=== PATIENT | male | born 1940 | race African-American/Black ===

== ENCOUNTER 2020-08-03 00:16 | Inpatient (IN) | payer MEDICARE, MEDICAID, OTHER ==
[2020-08-03] MEDS ORDERED: Fentanyl 100 MCG/2 ML VIAL ONE (00:46)
[2020-08-03] MEDS ORDERED: Ondansetron PF 4 MG/2 ML Vial ONE (00:46)
[2020-08-03 01:30] LABS: #Lymphocytes 0.9 thou/uL (1.20-3.40); #Monocytes 0.5 thou/uL (0.11-0.59); %Basophils 0.2 % (0.0-1.0); %Eosinophils 0.6 % (0.0-10.0); %Lymphocytes 12.4 % (21.0-51.0); %Monocytes 6.4 % (0.0-10.0); %Neutrophils 80.4 % (42.0-75.0); Hemoglobin 13.4 g/dL (14.0-18.0); Mean Corpuscular HGB CONC 33.1 g/dL (32.0-36.0); Mean Corpuscular Hemoglobin 30.8 pg (27.0-31.0); Mean Corpuscular Volume 93.2 fL (78.0-98.0); Mean Platelet Volume 7.1 fL (7.4-10.4); Platelet Count 361 thou/uL (130-400); RBC Distribution Width 12.7 % (11.5-14.5); Red Blood Cell (RBC) Count 4.33 mill/uL (4.70-6.10); White Blood Cell (WBC) Count 7.4 thou/uL (4.8-10.8)
[2020-08-03 01:46] LABS: ALT (SGPT) 10 U/L (8-55); AST (SGOT) 14 U/L (5-34); Albumin 3.8 g/dL (3.4-4.8); Alkaline Phosphatase 81 U/L (40-110); Anion Gap 14 mmol/L (10-20); BUN (Urea Nitrogen) 8 mg/dL (8.4-25.7); Bilirubin, Total 0.2 mg/dL (0.2-1.2); Calc. Creatinine Clearance 0 mL/min (70-130); Carbon Dioxide 26 mmol/L (23-31); Chloride 94 mmol/L (98-107); Estimated GFR-MDRD Greater than 90; Globulin 2.9 g/dL (2.4-3.5); Glucose 131 mg/dL (83-110); Lipase 14 U/L (8-78); Potassium 3.8 mmol/L (3.5-5.1); Protein, Total 6.7 g/dL (5.8-8.1); Sodium 130 mmol/L (136-145)
[2020-08-03] MEDS ORDERED: Piperacillin/Tazobactam 4.5 GM VIAL ONE (02:49)
[2020-08-03] MEDS ORDERED: Ondansetron PF 4 MG/2 ML Vial IVP PRN (03:02)
[2020-08-03] MEDS ORDERED: Morphine 2 MG/ML VIAL SLOW IVP PRN (03:08)
--- NOTE | 2020-08-03 03:08 | PDOC.HHP ---
Hospitalist HPI - History of Present Illness Abdominal pain and distention History of Present Illness: 79-year-old gentleman with a history of hypertension, prostate cancer, history of multiple bowel surgeries presented to the emergency department with a complaint of nausea and vomiting, abdominal pain and bloating. He was recently admitted to [facility] for small bowel obstruction which was treated nonoperatively. Patient was discharged 3 days ago. He denied any vomiting. He stated her last bowel movement was this morning and was passing gas till yesterday in the evening. Images done in the emergency department demonstrate high-grade small bowel obstruction and presence of small ascites. General surgeon Dr. Laws was contacted who recommended patient to be admitted to the hospitalist service for her to consult. He denied any pain during my examination. Hospitalist ROS - Review of Systems Other: Except as documented, all other systems reviewed and negative. - Medication Medications: Patient not able to keep names of medication he takes at home. Hospitalist History - Past Medical History Other Medical History: Hypertension, prostate cancer, history of small bowel obstruction. - Past Surgical History Other Surgical History: Multiple bowel surgeries. - Family History Family History: reports: cancer (Father) - Social History Smoking Status: Current every day smoker Alcohol: reports: None Drugs: reports: none Living Situation: With Family - Exam General Appearance: NAD, awake alert Eye: PERRL, anicteric sclera ENT: normocephalic atraumatic, no oropharyngeal lesions, moist mucosa Neck: supple, symmetric, no JVD, no thyromegaly Heart: RRR, no murmur, no rubs Respiratory: CTAB, no wheezes, no rales, no ronchi Gastrointestinal: soft, non-tender, distended Gastrointestinal - other findings: Tense. Hyperactive bowel sounds Extremities: no cyanosis, no edema Skin: normal turgor, no rashes Neurological: cranial nerve grossly intact, no weakness, no focal deficits Musculoskeletal: normal tone, normal strength Psychiatric: normal affect, normal behavior, A&O x 3 Hospitalist Results - Labs Result Diagrams: 08/03/20 05:27 08/03/20 05:38 Lab results: WBC 7.4 thou/uL (4.8-10.8) 08/03/20 01:15 Hgb 13.4 g/dL (14.0-18.0) L 08/03/20 01:15 Hct 40.4 % (42.0-52.0) L 08/03/20 01:15 MCV 93.2 fL (78.0-98.0) 08/03/20 01:15 Plt Count 361 thou/uL (130-400) 08/03/20 01:15 Neutrophils % 80.4 % (42.0-75.0) H 08/03/20 01:15 Sodium 130 mmol/L (136-145) L 08/03/20 01:15 Potassium 3.8 mmol/L (3.5-5.1) 08/03/20 01:15 Chloride 94 mmol/L (98-107) L 08/03/20 01:15 Carbon Dioxide 26 mmol/L (23-31) 08/03/20 01:15 BUN 8 mg/dL (8.4-25.7) L 08/03/20 01:15 Creatinine 0.89 mg/dL (0.7-1.3) 08/03/20 01:15 Glucose 131 mg/dL (83-110) H 08/03/20 01:15 Lactic Acid 1.2 mmol/L (0.5-2.2) 08/03/20 01:15 Calcium 9.0 mg/dL (7.8-10.44) 08/03/20 01:15 Total Bilirubin 0.2 mg/dL (0.2-1.2) 08/03/20 01:15 AST 14 U/L (5-34) 08/03/20 01:15 ALT 10 U/L (8-55) 08/03/20 01:15 Alkaline Phosphatase 81 U/L (40-110) 08/03/20 01:15 Troponin I 0.019 ng/mL (< 0.028) 08/03/20 01:15 Serum Total Protein 6.7 g/dL (5.8-8.1) 08/03/20 01:15 Albumin 3.8 g/dL (3.4-4.8) 08/03/20 01:15 Lipase 14 U/L (8-78) 08/03/20 01:15 Hospitalist H&P A/P - Problem (1) Small bowel obstruction Code(s): K56.609 - UNSP INTESTNL OBST, UNSP TO PARTIAL VERSUS COMPLETE OBST Status: Acute Assessment and Plan: High-grade. (2) Ascites Code(s): R18.8 - OTHER ASCITES Status: Acute Assessment and Plan: Small amount of ascites. May be reactive to the bowel obstruction. (3) History of prostate cancer Code(s): Z85.46 - PERSONAL HISTORY OF MALIGNANT NEOPLASM OF PROSTATE Status: Acute (4) Hyponatremia Code(s): E87.1 - HYPO-OSMOLALITY AND HYPONATREMIA Status: Acute (5) Hypertension Code(s): I10 - ESSENTIAL (PRIMARY) HYPERTENSION Status: Acute - Plan Plan: Admit to the medical floor. Supportive measures with IV hydration, IV opioid for pain. Consult to general surgery requested. Ascites is likely reactive. Empiric IV antibiotics. IV normal saline to treat hyponatremia. Blood pressure is well controlled. Monitor BMP and CBC. NG tube per general surgery.
--- NOTE | 2020-08-03 03:14 | PDOC.FMACP ---
Advance Care Planning - Problem (1) Small bowel obstruction Status: Acute Code(s): K56.609 - UNSP INTESTNL OBST, UNSP TO PARTIAL VERSUS COMPLETE OBST (2) Ascites Status: Acute Code(s): R18.8 - OTHER ASCITES (3) History of prostate cancer Status: Acute Code(s): Z85.46 - PERSONAL HISTORY OF MALIGNANT NEOPLASM OF PROSTATE (4) Hyponatremia Status: Acute Code(s): E87.1 - HYPO-OSMOLALITY AND HYPONATREMIA (5) Hypertension Status: Acute Code(s): I10 - ESSENTIAL (PRIMARY) HYPERTENSION - Note Summary: Advanced Care Planning was discussed. The diagnosis, prognosis and goals of care were discussed. Appropriate forms and documentation to accomplish the goals of care were discussed. All questions were answered. Patient wishes to be full code. I discussed advance care planning and need to document advanced directive. His Wanda Mayer is the surrogate medical decision maker. Time Spent (mins): 16
[2020-08-03 06:22] LABS: Hemoglobin 15.1 g/dL (14.0-18.0); Mean Corpuscular HGB CONC 32.1 g/dL (32.0-36.0); Mean Corpuscular Hemoglobin 30.1 pg (27.0-31.0); Mean Corpuscular Volume 93.7 fL (78.0-98.0); Mean Platelet Volume 8.2 fL (7.4-10.4); Platelet Count 303 thou/uL (130-400); RBC Distribution Width 12.9 % (11.5-14.5); Red Blood Cell (RBC) Count 5.03 mill/uL (4.70-6.10); White Blood Cell (WBC) Count 11.8 thou/uL (4.8-10.8)
[2020-08-03 06:25] LABS: ALT (SGPT) 9 U/L (8-55); AST (SGOT) 19 U/L (5-34); Albumin 3.9 g/dL (3.4-4.8); Alkaline Phosphatase 87 U/L (40-110); Anion Gap 17 mmol/L (10-20); BUN (Urea Nitrogen) 9 mg/dL (8.4-25.7); Bilirubin, Total 0.3 mg/dL (0.2-1.2); Calc. Creatinine Clearance 0 mL/min (70-130); Calcium 8.9 mg/dL (7.8-10.44); Carbon Dioxide 22 mmol/L (23-31); Chloride 96 mmol/L (98-107); Estimated GFR-MDRD Greater than 90; Glucose 124 mg/dL (83-110); Potassium 4.1 mmol/L (3.5-5.1); Protein, Total 6.9 g/dL (5.8-8.1); Sodium 131 mmol/L (136-145)
[2020-08-03 06:26] LABS: #Lymphocytes 1.1 thou/uL (1.20-3.40); #Neutrophils 9.6 thou/uL (1.40-6.50); %Basophils 0.3 % (0.0-1.0); %Eosinophils 0.3 % (0.0-10.0); %Lymphocytes 9.5 % (21.0-51.0); %Monocytes 8.4 % (0.0-10.0); %Neutrophils 81.6 % (42.0-75.0)
[2020-08-03] MEDS ORDERED: HYDROcodone/Acetaminophen 5/325 mg Tablet PO PRN ×2 (06:27→06:28)
--- NOTE | 2020-08-03 07:51 | RAD ---
Radiograph abdomen one view: 08/03/2020 4:06 AM HISTORY: 79-year-old male with small bowel obstruction, status post NG tube adjustment COMPARISON: None FINDINGS: Esophageal tube side port at EG junction, distal tip vertically oriented overlapping left side of L2 vertebral body. Dilated air-filled small bowel loops with air-fluid levels. Excreted contrast material in nondilated bilateral renal collecting systems. Mid and lower abdomen, and right side of abdomen, excluded from [id number]. IMPRESSION: Esophagogastric tube distal tip overlying expected location of proximal stomach
--- NOTE | 2020-08-03 07:54 | RAD ---
Portable frontal chest radiograph: 08/03/2020 COMPARISON: 06/22/2012 HISTORY: Pain and distention FINDINGS: There is hazy increased density in the medial left lung base suggesting partial consolidati on/collapse of the left lower lobe with associated left pleural effusion. There is a nasogastric tube present, distal tip at the level of the gastroesophageal junction, side port in the mid/distal e sophagus. Recommend advancing the nasogastric tube. Dilated loops of gas-filled small bowel noted within the left upper quadrant concerning for small bowel obstruction. Hazy increased linear interstitial density noted with pulmonary hyperinflation. No pneumothorax noted . IMPRESSION: Pleural and right lung opacity in the left lung base. Nasogastric tube in place, which do es not extend into the abdomen and should thus be advanced and repeat imaged.
--- NOTE | 2020-08-03 07:58 | CT ---
PRELIMINARY REPORT/[facility]/EMERGENCY AFTER HOURS PROCEDURE: Receipt of this report by the clinical staff was confirmed with Rikki Felipe DO by Nabeel Celis on Aug 03, 2020 02:21:00 CDT.Addendum electronically signed by Nabeel Celis on August 03, 2020 2:21:31 AM CDT EXAM: CT Abdomen and Pelvis with Intravenous Contrast CLINICAL HISTORY: 79-year-old male with a past medical history of hypertension and SBO with multiple abdominal surgeries presents to the ER because of nausea and vomiting that started today TECHNIQUE: Axial computed tomography images of the abdomen and pelvis with intravenous contrast. CONTRAST: With; ISOVUE 370,100mL COMPARISON: None provided. FINDINGS: Lower thorax: Heart is normal in size. There is moderate centrilobular emphysema. There is a moderate size left pleural effusion and a small right pleural effusion. No acute airspace opacities. LIVER: Unremarkable. GALLBLADDER AND BILE DUCTS: Unremarkable. No calcified stone. No ductal dilation. PANCREAS: Unremarkable. SPLEEN: Unremarkable. ADRENAL GLANDS: Unremarkable. KIDNEYS, URETERS, AND BLADDER: Unremarkable. No hydronephrosis or nephrolithiasis. No ureteral or reagan dder calculi. STOMACH AND BOWEL: Esophagus is patulous and fluid-filled. There is a small hiatal hernia that is al so fluid-filled. There is diffuse dilation of small bowel with nondistended large bowel. Transition point appears to be in the right lower quadrant. There is evidence of ascites. No free air. Moderate amount of fecal material in the proximal large bowel. No evidence for large bowel distention or wall thickening. APPENDIX: Not visualized PERITONEUM: No free fluid. No free air. LYMPH NODES: No lymphadenopathy. REPRODUCTIVE: Unremarkable as visualized. VASCULATURE: No aortic aneurysm. BONES: No fracture or suspicious osseous abnormality. ABDOMINAL WALL AND SOFT TISSUES: There is subcutaneous soft tissue infiltration consistent with edema . IMPRESSION: Findings suspicious for high-grade distal small bowel obstruction with transition point i n right lower quadrant. No evidence for free air. Ascites, moderate sized left pleural effusion and subcutaneous infiltration suggesting anasarca. ELECTRONICALLY SIGNED BY: Missy Haywood MD Aug 03, 2020 2:17:06 AM CDT FINAL REPORT EXAM: CT ABDOMEN AND PELVIS HISTORY: Evaluate for small bowel obstruction. COMPARISON: None. Procedure: Multiple contiguous axial images were obtained and a CT of the abdomen and pelvis with IV contrast. C oronal reformats were performed. FINDINGS: Lower Chest: Moderate left-sided pleural effusion. Emphysematous changes of the lung parenchyma. Atel ectatic changes lung bases. Vessels: Normal caliber aorta with atherosclerosis. Heart: Normal heart size. No significant pericardial fluid. Abdomen: Portal vein:Patent. Gallbladder: Contracted. Liver: within normal limits. Pancreas: within normal limits. Spleen: within normal limits. Adrenals: within normal limits. Kidneys: Symmetric enhancement. No obstructive uropathy. Two separate right renal cysts. Peritoneum: There is a moderate amount of free fluid in the abdomen. Bowel: Markedly limited air-filled distended loops of small bowel. Colon is decompressed, as is the d istal ileum. The exact transition segment is difficult to appreciate, but is presumed to be in the right lower quadrant. Mesentery and Retroperitoneum: No enlarged mesenteric or retroperitoneal lymph nodes. Abdominal Wall: within normal limits. Pelvis: Reproductive Organs: Reproductive organs are unremarkable. Pelvis: There is free fluid in the pelvis. Bladder: Decompressed and cannot be assessed. Bones: Degenerative changes. No lytic or blastic lesions. IMPRESSION: 1. This report is in agreement with initial report by [facility]. 2. Moderate left-sided effusion. 3. Free fluid in the abdomen or pelvis. 4. Suspicion for high-grade small bowel obstruction. Exact transition point is difficult to determine but may be in the right lower quadrant. Transcribed Date/Time: 08/03/2020 8:12 AM
[2020-08-03] MEDS: Famotidine/PF 20 mg/2ml Vial SLOW IVP SCH ×2 (08:36→21:05)
[2020-08-03] MEDS: Sodium Chloride 0.9% 1,000 ML IV SCH ×2 (08:36→17:06)
[2020-08-03] MEDS: Piperacillin/Tazobactam 3.375 GM in Sodium Chloride 0.9% 100 ML IVPB SCH ×3 (08:37→21:05)
[2020-08-03] MEDS ORDERED: FLU VACC QS2020-21(65YR UP)/PF 240 MCG/0.7 ML SYRINGE IM ONE (12:15)
[2020-08-03 12:55] LABS: SARS-CoV-2 MS2 Positive; SARS-CoV-2 N Gene Negative; SARS-CoV-2 S Gene Negative; SARS-CoV-2 by NAA Not Detected (NotDetected); SARS-CoV-2 orf1ab Negative
--- NOTE | 2020-08-03 14:22 | CON ---
DATE OF CONSULTATION: REASON FOR CONSULTATION: Abdominal pain. HISTORY OF PRESENT ILLNESS: Mr. Mayer is a 79-year-old man recently discharged from [facility] in [place] for small bowel obstruction, he states this was managed conservatively, and he had been home for 3 days, eating normally and having bowel movements. However, last night, he developed recurrent pain and nausea, so he came to the emergency room, was found to have evidence of small bowel obstruction on CT. The transition point could not be definitely seen, but the small bowel was fairly dilated. He states that he was passing gas last night. He has not noticed any at this morning. He is not having any pain or nausea currently. He has an NG tube in place with bilious drainage. He denies any weight loss. He does have a history of multiple bowel obstructions in the past. He had prostate surgery in 2008 and has had two surgeries since then for small bowel obstruction. He is quite thin, but states that this is his normal weight. He was also noted on his CT scan of the abdomen and pelvis to have a left pleural effusion and some ascites. The hospitalist feels that the ascites is likely reactive to the small bowel obstruction, but it is unclear how long the pleural effusion has been present or what the etiology of this is. He does have a 65 pack-year history of smoking, but denies any shortness of breath. He also denies any history of heart disease or heart failure. PAST MEDICAL HISTORY: Hypertension, prostate cancer, bowel obstructions, and tobacco abuse. PAST SURGICAL HISTORY: Prostatectomy in 2008 followed by "some radiation" and two subsequent surgeries for bowel obstruction. He is unsure of the date. SOCIAL HISTORY: The patient smokes a pack a day since he was 18 years old. Does not drink heavily or use any drugs. ALLERGIES: HE HAS NO KNOWN DRUG ALLERGIES. MEDICATIONS: He does not know all the names of his medications, but according to the ER note, takes; 1. Amlodipine. 2. Albuterol inhaler. 3. Iron. 4. . REVIEW OF SYSTEMS: Ten-system review of systems negative except per HPI. PHYSICAL EXAMINATION: VITAL SIGNS: The patient is afebrile, heart rate 94, respirations 18, 100% on 1 L nasal cannula, and blood pressure 121/72. GENERAL: Reveals a thin elderly man with a BMI of 16. He is in no acute distress. He has an NG tube in place with bilious drainage. HEENT: Unremarkable. NECK: Supple without lymphadenopathy or thyroid nodules. HEART: Regular in its rate and rhythm without murmurs, rubs, or gallops. LUNGS: Clear to auscultation bilaterally. ABDOMEN: Distended and somewhat firm, but nontender. Bowel sounds are diminished. Has a healed midline and paramedian incision. No palpable masses or hernias. EXTREMITIES: Cool without ulceration. He does not have any palpable pedal pulses or popliteal pulses, but does have femoral pulses bilaterally. NEUROLOGIC: No focal deficits. PSYCHIATRIC: Alert, oriented, appropriate, although a vague historian. PSYCHIATRIC: Normal affect and linear thought processes. LABORATORY DATA: White count was slightly elevated at 11, platelets 303, and hematocrit 47. Sodium slightly low 131, bicarb 22, glucose 124. Other electrolytes and LFTs are normal, and his albumin is 3.9, troponin was 0.019. Imaging was reviewed and I agree with the written report that he has a dilated small bowel loops. I am unable to identify a transition point as well, and I am having difficulty seeing in the terminal ileum due to the patient's very thin body habitus. ASSESSMENT: Likely recurrent small-bowel obstruction, although transition point cannot definitely be identified and it is difficult to identify the terminal ileum due to his thin body habitus. He has an NG tube in place and is comfortable and I favor a course of conservative management. The recurrence of bowel obstruction so soon after his discharge with the previous episode is not a good prognostic factor for this being able to be managed conservatively. However, the patient does have a left pleural effusion of uncertain etiology. I am concerned that he could have underlying heart disease given his peripheral vascular disease on examination and his long smoking history, but I will leave it at the hospitalist discretion whether additional cardiac workup is necessary preoperatively. I think that he has a relatively high risk of proceeding to surgery, which would likely need to be open given his multiple laparotomies for bowel obstruction in the past. The patient is currently comfortable and there is no urgent indication for surgery today. I will continue to follow him with the Hospitalist Service. Given his baseline underweight status and recent bowel obstruction, n.p.o. status, I have ordered TPN to start today, and I have asked the dietitian to evaluate him. Job ID: [id number]
[2020-08-03] MEDS ORDERED: Iopamidol-370 76% 500 ML 1 ML ONE (14:36)
[2020-08-03] MEDS ORDERED: AA 4.25 %/CALCIUM/LYTES/D5W 2,000 ML IV SCH (15:00)
[2020-08-03] MEDS: D5W-AA 4.25% with LYTES 1,000 ML IV SCH (17:05)
[2020-08-04] MEDS: Piperacillin/Tazobactam 3.375 GM in Sodium Chloride 0.9% 100 ML IVPB SCH ×4 (03:31→21:13)
[2020-08-04] MEDS: Sodium Chloride 0.9% 1,000 ML IV SCH ×2 (06:37→21:13)
[2020-08-04] MEDS: Famotidine/PF 20 mg/2ml Vial SLOW IVP SCH ×2 (08:45→21:13)
[2020-08-04] MEDS: D5W-AA 4.25% with LYTES 1,000 ML IV SCH ×2 (09:17→21:17)
--- NOTE | 2020-08-04 09:56 | PDOC.GSPN ---
Surgery Progress Note: Subj - Subjective Narrative: Patient states that he is feeling good. He denies any abdominal pain or nausea. He has not noticed that he has passed any gas however. He has only been ambulating in the room to the bathroom. Vital signs are normal. No fever. Abdomen is soft and nontender to palpation although somewhat distended given his overall body habitus. Bowel sounds are still diminished. Assessment/plan: Small bowel obstruction, symptomatically improved but still with diminished bowel sounds and no reported passage of flatus. NG output is slightly bilious but clearer and [employer] lab[employer] in color than yesterday. I am going to give him another 24 hours of bowel rest. I have ordered a small bowel follow- through for tomorrow morning. If he has not opened up by then he will likely require laparotomy. Surgery Progress Note: Obj - Vital signs Vital signs: Vital Signs - Most Recent Temp Pulse Resp BP Pulse Ox 98.3 F 86 14 123/73 97 08/04/20 07:05 08/04/20 07:05 08/04/20 07:05 08/04/20 07:05 08/04/20 07:05 Surgery Progress Note: Results - Labs Result Diagrams: 08/03/20 05:27 08/03/20 05:38
[2020-08-04 11:02] LABS: #Eosinphils 0.1 thou/uL (0.0-0.7); #Lymphocytes 1.1 thou/uL (1.20-3.40); #Monocytes 0.7 thou/uL (0.11-0.59); #Neutrophils 5.5 thou/uL (1.40-6.50); %Basophils 0.3 % (0.0-1.0); %Eosinophils 1.7 % (0.0-10.0); %Lymphocytes 14.8 % (21.0-51.0); %Monocytes 9.8 % (0.0-10.0); %Neutrophils 73.4 % (42.0-75.0); Hemoglobin 13.3 g/dL (14.0-18.0); Mean Corpuscular HGB CONC 31.4 g/dL (32.0-36.0); Mean Corpuscular Hemoglobin 29.4 pg (27.0-31.0); Mean Corpuscular Volume 93.5 fL (78.0-98.0); Platelet Count 380 thou/uL (130-400); RBC Distribution Width 12.9 % (11.5-14.5); Red Blood Cell (RBC) Count 4.55 mill/uL (4.70-6.10); White Blood Cell (WBC) Count 7.4 thou/uL (4.8-10.8)
[2020-08-04 11:04] VITALS: BMI 17.0
[2020-08-04 12:08] LABS: Albumin 2.9 g/dL (3.4-4.8)
[2020-08-04 12:09] LABS: Chloride 99 mmol/L (98-107); Potassium 4.9 mmol/L (3.5-5.1); Sodium 130 mmol/L (136-145)
[2020-08-04 12:10] LABS: Calcium 8.3 mg/dL (7.8-10.44); Glucose 105 mg/dL (83-110)
[2020-08-04 12:11] LABS: Globulin 3.2 g/dL (2.4-3.5); Protein, Total 6.1 g/dL (5.8-8.1)
[2020-08-04 12:12] LABS: Bilirubin, Total 0.4 mg/dL (0.2-1.2); Carbon Dioxide 19 mmol/L (23-31)
[2020-08-04 12:13] LABS: Alkaline Phosphatase 75 U/L (40-110)
[2020-08-04 12:14] LABS: Calc. Creatinine Clearance 63 mL/min (70-130); Estimated GFR-MDRD Greater than 90
[2020-08-04 12:15] LABS: BUN (Urea Nitrogen) 13 mg/dL (8.4-25.7)
[2020-08-04 12:16] LABS: ALT (SGPT) 11 U/L (8-55); AST (SGOT) 17 U/L (5-34)
[2020-08-04 12:22] LABS: Anion Gap 17 mmol/L (10-20)
--- NOTE | 2020-08-04 17:57 | PDOC.HOSPP ---
- Subjective Encounter Date: 08/04/20 Encounter Time: 10:00 Subjective: Patient seen in follow-up for bowel obstruction. Denies abdominal pain. Denies flatus. - Objective Vital Signs & Weight: Vital Signs (12 hours) Temp Pulse Resp BP Pulse Ox 08/04/20 15:52 97.8 F 87 16 159/83 H 100 08/04/20 13:00 98.2 F 87 18 136/83 100 08/04/20 08:45 97 08/04/20 07:05 98.3 F 86 14 123/73 97 Weight Admit Weight 122 lb Weight 125 lb 14.4 oz I&O: 08/03/20 08/04/20 08/05/20 06:59 06:59 06:59 Intake Total 2196 Output Total 850 Balance 1346 Result Diagrams: 08/04/20 10:41 08/04/20 10:41 Additional Labs: I reviewed patient's labs and MAR Hospitalist ROS - Review of Systems Cardiovascular: denies: chest pain, palpitations, orthopnea, paroxysmal noc. dyspnea, edema, light headedness, other Gastrointestinal: reports: constipation. denies: nausea, vomiting, abdominal pain, diarrhea, melena, hematochezia - Medication Medications: Active Medications Generic Name Dose Route Start Last Admin Trade Name Freq PRN Reason Stop Dose Admin Famotidine 20 mg 08/03/20 09:00 08/04/20 08:45 Famotidine/Pf 20 Mg/2ml Vial SLOW IVP 20 mg Q12HR MAE Administration Sodium Chloride 1,000 mls @ 75 mls/hr 08/03/20 03:15 08/04/20 06:37 Normal Saline 0.9% IV 1,000 mls .[id number] MAE Administration Piperacillin Sod/Tazobactam 100 mls @ 200 mls/hr 08/03/20 09:00 08/04/20 14:46 Sod 3.375 gm/ Sodium Chloride IVPB 100 mls 0300,0900,1500,2100 MAE Administration Amino Acids/Electrolytes/Dextrose 1,000 mls @ 83.333 mls/hr 08/03/20 15:30 08/04/20 09:17 Clinimix E 4.25/5 IV 1,000 mls INF MAE Administration Sodium Chloride 10 ml 08/03/20 09:00 08/04/20 08:45 Flush - Normal Saline 10 Ml Syringe IVF 10 ml Q12HR MAE Administration - Exam General Appearance: awake alert Eye: anicteric sclera ENT: moist mucosa Neck: supple Heart: RRR Respiratory: CTAB Gastrointestinal: soft, non-tender Extremities: no cyanosis Skin: no rashes Psychiatric: normal affect, normal behavior Hosp A/P - Plan -Assessment (1) Small bowel obstruction Code(s): K56.609 - UNSP INTESTNL OBST, UNSP TO PARTIAL VERSUS COMPLETE OBST Status: Acute (2) Ascites Code(s): R18.8 - OTHER ASCITES Status: Acute (3) History of prostate cancer Code(s): Z85.46 - PERSONAL HISTORY OF MALIGNANT NEOPLASM OF PROSTATE Status: Chronic (4) Hyponatremia Code(s): E87.1 - HYPO-OSMOLALITY AND HYPONATREMIA Status: Chronic (5) Hypertension Code(s): I10 - ESSENTIAL (PRIMARY) HYPERTENSION Status: Chronic - Plan General surgery service following. Hypertension controlled. NG tube to suction. Likely small bowel follow-through tomorrow. Hyponatremia stable.
[2020-08-05] MEDS: Piperacillin/Tazobactam 3.375 GM in Sodium Chloride 0.9% 100 ML IVPB SCH ×4 (05:18→19:41)
[2020-08-05 05:33] LABS: #Eosinphils 0.1 thou/uL (0.0-0.7); #Lymphocytes 1.2 thou/uL (1.20-3.40); #Monocytes 0.7 thou/uL (0.11-0.59); #Neutrophils 5.1 thou/uL (1.40-6.50); %Basophils 0.2 % (0.0-1.0); %Eosinophils 2.1 % (0.0-10.0); %Lymphocytes 16.6 % (21.0-51.0); %Monocytes 9.4 % (0.0-10.0); %Neutrophils 71.6 % (42.0-75.0); Mean Corpuscular HGB CONC 32.8 g/dL (32.0-36.0); Mean Corpuscular Hemoglobin 30.2 pg (27.0-31.0); Mean Corpuscular Volume 91.9 fL (78.0-98.0); Mean Platelet Volume 6.6 fL (7.4-10.4); Platelet Count 342 thou/uL (130-400); RBC Distribution Width 12.8 % (11.5-14.5); Red Blood Cell (RBC) Count 4.32 mill/uL (4.70-6.10); White Blood Cell (WBC) Count 7.1 thou/uL (4.8-10.8)
[2020-08-05 05:57] LABS: ALT (SGPT) 7 U/L (8-55); AST (SGOT) 12 U/L (5-34); Albumin 3.2 g/dL (3.4-4.8); Alkaline Phosphatase 62 U/L (40-110); Anion Gap 11 mmol/L (10-20); BUN (Urea Nitrogen) 16 mg/dL (8.4-25.7); Bilirubin, Total 0.3 mg/dL (0.2-1.2); Calc. Creatinine Clearance 67 mL/min (70-130); Calcium 8.1 mg/dL (7.8-10.44); Carbon Dioxide 28 mmol/L (23-31); Chloride 96 mmol/L (98-107); Estimated GFR-MDRD Greater than 90; Globulin 2.6 g/dL (2.4-3.5); Glucose 105 mg/dL (83-110); Potassium 4.5 mmol/L (3.5-5.1); Protein, Total 5.8 g/dL (5.8-8.1); Sodium 130 mmol/L (136-145)
[2020-08-05] MEDS: Famotidine/PF 20 mg/2ml Vial SLOW IVP SCH ×2 (10:03→21:09)
[2020-08-05] MEDS ORDERED: MD-Gastroview 120 ML BOT ONE (10:08)
[2020-08-05] MEDS: D5W-AA 4.25% with LYTES 1,000 ML IV SCH (10:34)
--- NOTE | 2020-08-05 13:17 | PDOC.HOSPP ---
- Subjective Encounter Date: 08/05/20 Encounter Time: 10:00 Subjective: Patient has been seen for follow-up regarding bowel obstruction. He denies any chest pain, shortness of breath or abdominal pain. Does not think he is passing flatus. - Objective Vital Signs & Weight: Vital Signs (12 hours) Temp Pulse Resp BP Pulse Ox 08/05/20 12:38 96 16 120/78 95 08/05/20 08:01 97.9 F 90 16 161/82 H 94 L 08/05/20 03:20 97.5 F L 92 18 148/88 H 96 Weight Admit Weight 122 lb Weight 125 lb 14.4 oz I&O: 08/04/20 08/05/20 08/06/20 06:59 06:59 06:59 Intake Total 2196 2445.3 Output Total 850 900 Balance 1346 1545.3 Result Diagrams: 08/05/20 05:16 08/05/20 05:16 Additional Labs: I reviewed patient's labs and MAR Hospitalist ROS - Review of Systems Constitutional: denies: fever, chills, sweats, weakness, malaise Gastrointestinal: reports: constipation. denies: nausea, vomiting, abdominal pain, diarrhea, melena, hematochezia - Medication Medications: Active Medications Generic Name Dose Route Start Last Admin Trade Name Maximilianoq PRN Reason Stop Dose Admin Famotidine 20 mg 08/03/20 09:00 08/05/20 10:03 Famotidine/Pf 20 Mg/2ml Vial SLOW IVP 20 mg Q12HR MAE Administration Sodium Chloride 1,000 mls @ 75 mls/hr 08/03/20 03:15 08/04/20 21:13 Normal Saline 0.9% IV Not Given .[id number] MAE Amino Acids/Electrolytes/Dextrose 1,000 mls @ 83.333 mls/hr 08/03/20 15:30 08/05/20 10:34 Clinimix E 4.25/5 IV 1,000 mls INF MAE Administration Piperacillin Sod/Tazobactam 100 mls @ 200 mls/hr 08/05/20 06:00 08/05/20 12:42 Sod 3.375 gm/ Sodium Chloride IVPB 100 mls Q6HR MEA Administration Ondansetron HCl 4 mg 08/03/20 03:02 08/05/20 12:42 Ondansetron Pf 4 Mg/2 Ml Vial IVP 4 mg Q6H PRN Administration Nausea/Vomiting Sodium Chloride 10 ml 08/03/20 09:00 08/05/20 10:07 Flush - Normal Saline 10 Ml Syringe IVF 10 ml Q12HR MAE Administration - Exam General Appearance: awake alert Eye: anicteric sclera ENT: moist mucosa Neck: supple Heart: RRR Respiratory: CTAB Gastrointestinal: soft, non-tender, normal bowel sounds Skin: no rashes Psychiatric: normal affect, normal behavior Hosp A/P - Plan -Assessment (1) Small bowel obstruction Code(s): K56.609 - UNSP INTESTNL OBST, UNSP TO PARTIAL VERSUS COMPLETE OBST Status: Acute (2) Ascites Code(s): R18.8 - OTHER ASCITES Status: Acute (3) History of prostate cancer Code(s): Z85.46 - PERSONAL HISTORY OF MALIGNANT NEOPLASM OF PROSTATE Status: Chronic (4) Hypertension Code(s): I10 - ESSENTIAL (PRIMARY) HYPERTENSION Status: Chronic (5) Hyponatremia Code(s): E87.1 - HYPO-OSMOLALITY AND HYPONATREMIA Status: Chronic - Plan Patient to have small bowel follow-through study today, will await result. Hypertension controlled. Patient is hemodynamically stable. Hyponatremia stable.
--- NOTE | 2020-08-05 14:36 | RAD ---
SMALL BOWEL EXAM: 08/05/20 Gastrografin infused through an NG tube. INDICATIONS: Small bowel obstruction. The verifier film shows dilated loops of small bowel in the mid abdomen. On the immediate and 30 minute film, there are dilated loops of proximal small bowel opacified. At one hour, there are dilated loops of proximal to mid small bowel. No significant progression at 2 hour and 3 hours films. IMPRESSION: Evidence of high grade small bowel obstruction at 3 hours. No progression since the 2 hour exam. POS: AGW
[2020-08-05] MEDS ORDERED: Meropenem 2 GM, Admixture Fee 1 EACH in Sodium Chloride 0.9% 100 ML IVPB SCH (16:45)
--- NOTE | 2020-08-05 16:59 | PRG ---
DATE OF SERVICE: 08/05/2020 SUBJECTIVE: Grady Mayer is doing well today, although he has had some nausea and vomiting during a small-bowel follow-through. Small-bowel follow-through reveals complete bowel obstruction. He has had a prior history of prostatectomy and 2 past operations for bowel obstructions. NG tube output has been 400 since yesterday. OBJECTIVE: VITAL SIGNS: Temperature 97.6, pulse 109, blood pressure 164/93. LUNGS: Clear to auscultation. CARDIAC: Regular rhythm. ABDOMEN: Firm. Hyperactive bowel sounds. EXTREMITIES: Unremarkable. LABORATORY DATA: Basic metabolic profile normal. White count 7, hemoglobin 13. ASSESSMENT AND PLAN: Small bowel obstruction. Return NG tube to suction. Plan laparotomy, adhesiolysis tomorrow. Discussed with patient risks and benefits explained. Questions answered. Job ID: [id number]
--- NOTE | 2020-08-05 18:23 | OP ---
DATE OF PROCEDURE: 08/05/2020 PREOPERATIVE DIAGNOSES: 1. Poor IV access. 2. Small-bowel obstruction. POSTOPERATIVE DIAGNOSES: 1. Poor IV access. 2. Small-bowel obstruction. PROCEDURE PERFORMED: Right subclavian vein triple-lumen catheter, central line. ANESTHESIA: 1% Xylocaine. DESCRIPTION OF PROCEDURE: With the patient at bedside, right paraclavicular area was prepared with ChloraPrep and draped in routine fashion. 1% Xylocaine was infiltrated in the skin and subcutaneous tissue. Trocar catheter introduced infraclavicularly into the right subclavian vein, obtaining good return of venous blood. J-wire threaded. Trocar catheter removed. Seldinger technique used to place a triple-lumen catheter, secured with 3-0 silk suture. J-wire removed. Each port aspirated blood, flushed with saline solution. Chest x-ray called . Job ID: [id number]
--- NOTE | 2020-08-05 18:24 | RAD ---
Portable frontal chest radiograph: 08/05/2020 COMPARISON: 08/03/2020 HISTORY: Confirm central line placement FINDINGS: There is a right-sided vascular catheter with the distal tip overlying the region of the pr oximal right atrium. No pneumothorax is evident. There is a nasogastric tube in stable position. When compared to the 08/03/2020 examination there is worsening interstitial and alveolar opacity in t he perihilar regions and both lung bases. IMPRESSION: Right-sided vascular catheter in place. Nonspecific worsening bilateral perihilar and bib asilar interstitial and alveolar opacity.
[2020-08-05] MEDS: Sodium Chloride 0.9% 1,000 ML IV SCH (19:41)
[2020-08-06] MEDS: Piperacillin/Tazobactam 3.375 GM in Sodium Chloride 0.9% 100 ML IVPB SCH ×5 (00:02→23:30)
[2020-08-06] MEDS: Sodium Chloride 0.9% 1,000 ML IV SCH ×3 (00:06→18:06)
[2020-08-06] MEDS: D5W-AA 4.25% with LYTES 1,000 ML IV SCH (01:44)
[2020-08-06] MEDS: Famotidine/PF 20 mg/2ml Vial SLOW IVP SCH ×2 (09:06→20:26)
[2020-08-06] MEDS ORDERED: Fentanyl 100 MCG/2 ML VIAL ONE (09:08)
[2020-08-06] MEDS ORDERED: Dexamethasone 4 mg/ml Vial ONE (09:08)
[2020-08-06] MEDS ORDERED: Fentanyl 250 MCG/5 ML VIAL ONE (09:18)
[2020-08-06] MEDS ORDERED: Albumin 5% 500 ML ONE ×2 (09:57→11:38)
[2020-08-06] MEDS ORDERED: Phenylephrine 10 MG/ML VIAL ONE ×2 (10:03→11:38)
[2020-08-06 10:06] LABS: Hemoglobin 11.6 g/dL (14.0-18.0); Mean Corpuscular HGB CONC 32.3 g/dL (32.0-36.0); Mean Corpuscular Hemoglobin 30.3 pg (27.0-31.0); Mean Corpuscular Volume 93.6 fL (78.0-98.0); Mean Platelet Volume 6.9 fL (7.4-10.4); Platelet Count 354 thou/uL (130-400); RBC Distribution Width 12.8 % (11.5-14.5); Red Blood Cell (RBC) Count 3.82 mill/uL (4.70-6.10); White Blood Cell (WBC) Count 13.8 thou/uL (4.8-10.8)
[2020-08-06 10:07] LABS: INR-International Normal Ratio 1.3; PTT 38.1 sec (22.9-36.1); Prothrombin Time 16.2 sec (12.0-14.7)
[2020-08-06 10:32] LABS: ALT (SGPT) 9 U/L (8-55); AST (SGOT) 16 U/L (5-34); Albumin 3.3 g/dL (3.4-4.8); Alkaline Phosphatase 84 U/L (40-110); Anion Gap 14 mmol/L (10-20); BUN (Urea Nitrogen) 24 mg/dL (8.4-25.7); Bilirubin, Total 0.4 mg/dL (0.2-1.2); Calc. Creatinine Clearance 64 mL/min (70-130); Calcium 8.8 mg/dL (7.8-10.44); Carbon Dioxide 29 mmol/L (23-31); Chloride 96 mmol/L (98-107); Estimated GFR-MDRD Greater than 90; Globulin 2.9 g/dL (2.4-3.5); Glucose 118 mg/dL (83-110); Magnesium 2.4 mg/dL (1.6-2.6); Potassium 4.5 mmol/L (3.5-5.1); Protein, Total 6.2 g/dL (5.8-8.1); Sodium 134 mmol/L (136-145)
[2020-08-06 10:33] LABS: Cholesterol 95 mg/dl (< 200 Desired); HDL Cholesterol 48 mg/dL (>60 Neg Risk); LDL Cholesterol, Calculated 37 mg/dL; Phosphorus 4.3 mg/dL (2.3-4.7); Triglycerides 50 mg/dL (Less than 150)
[2020-08-06 10:42] LABS: Band 16 % (5-11); Large Platelets SLIGHT; Lymphocytes 3 % (21-51); MDiff Complete? YES; Monocytes 5 % (0-10); Neutrophil 76 % (42-75); Platelet Morphology Comment Appears Adequate; Vacuoles SLIGHT
[2020-08-06] MEDS ORDERED: Ondansetron HCl/PF 4 MG/2 ML Vial IVP PRN (12:40)
[2020-08-06] MEDS ORDERED: Promethazine HCl 25 MG/ML VIAL IM PRN (12:40)
[2020-08-06] MEDS ORDERED: Promethazine HCl 25 MG/ML VIAL SLOW IVP PRN (12:40)
[2020-08-06] MEDS ORDERED: Sodium Chloride 0.9% 1,000 ML IV SCH (12:45)
[2020-08-06] MEDS ORDERED: Ondansetron PF 4 MG/2 ML Vial ONE (12:51)
[2020-08-06] MEDS ORDERED: PROPOFOL 200 MG/20 ML VIAL ONE (12:51)
[2020-08-06] MEDS ORDERED: Succinylcholine Chloride 20 MG/ML 10 ml SYRINGE FS ONE (12:51)
[2020-08-06] MEDS ORDERED: Rocuronium Bromide 10 MG/ML (10ML VIAL) ONE (12:51)
[2020-08-06] MEDS ORDERED: Glycopyrrolate 0.2 MG/ML 5 ML SYRINGE ONE (12:51)
[2020-08-06] MEDS ORDERED: Lidocaine 1% PF 5 ML VIAL ONE (12:51)
[2020-08-06] MEDS ORDERED: EPHEDRINE 25 MG/5 ML SYRINGE ONE (12:51)
[2020-08-06] MEDS ORDERED: Dexamethasone 20 MG/5 ML VIAL ONE (13:16)
[2020-08-06] MEDS ORDERED: Ropivacaine 0.5% HCl/PF (150 MG/30 ML VIAL) ONE (13:16)
[2020-08-06] MEDS: HUMULIN R IV SCH (14:06)
[2020-08-06] MEDS: [UNRECOGNIZED DRUG - OTHER] IV SCH (14:06)
[2020-08-06] MEDS: FAT EMULSION IV SCH (14:06)
[2020-08-06] MEDS: SODIUM ACETATE IV SCH (14:06)
--- NOTE | 2020-08-06 15:28 | PDOC.HOSPP ---
- Subjective Encounter Date: 08/06/20 Encounter Time: 15:27 Subjective: Patient seen for follow-up regarding bowel obstruction. Had surgery earlier, is very sleepy, could not complete review of systems. - Objective Vital Signs & Weight: Vital Signs (12 hours) Temp Pulse Resp BP Pulse Ox 08/06/20 13:35 96.8 F L 96 20 109/60 100 08/06/20 08:30 97 08/06/20 07:14 97.5 F L 100 16 125/78 97 Weight Admit Weight 122 lb Weight 125 lb 14.4 oz I&O: 08/05/20 08/06/20 08/07/20 06:59 06:59 06:59 Intake Total 2445.3 800 1320 Output Total 900 2700 1075 Balance 1545.3 -1900 245 Result Diagrams: 08/06/20 09:26 08/06/20 09:26 Additional Labs: I reviewed patient's labs and MAR Hospitalist ROS - Review of Systems ROS unobtainable: due to mental status - Medication Medications: Active Medications Generic Name Dose Route Start Last Admin Trade Name Freq PRN Reason Stop Dose Admin Famotidine 20 mg 08/03/20 09:00 08/06/20 09:06 Famotidine/Pf 20 Mg/2ml Vial SLOW IVP Not Given Q12HR MAE Sodium Chloride 1,000 mls @ 75 mls/hr 08/03/20 03:15 08/06/20 14:06 Normal Saline 0.9% IV 1,000 mls .[id number] MAE Administration Piperacillin Sod/Tazobactam 100 mls @ 200 mls/hr 08/05/20 06:00 08/06/20 13:00 Sod 3.375 gm/ Sodium Chloride IVPB Not Given Q6HR MAE Fat Emulsion Intravenous 250 2,296.23 mls @ 95.676 mls/hr 08/06/20 14:00 08/06/20 14:06 ml/ Sodium Acetate 70 meq/ IV 2,296.23 mls Insulin Human Regular 23 units 1400 MAE Administration / Multivitamins 10 ml/ Chromium/Copper/Manganese/ Seleni/Zn 1 ml/ Amino Acids/ Electrolytes Ondansetron HCl 4 mg 08/03/20 03:02 08/05/20 12:42 Ondansetron Pf 4 Mg/2 Ml Vial IVP 4 mg Q6H PRN Administration Nausea/Vomiting Sodium Chloride 10 ml 08/03/20 09:00 08/06/20 09:06 Flush - Normal Saline 10 Ml Syringe IVF Not Given Q12HR MAE - Exam General Appearance: awake alert Eye: scleral icterus ENT: normocephalic atraumatic Neck: supple Heart: RRR Respiratory: CTAB Gastrointestinal: soft Gastrointestinal - other findings: Abdominal dressing Extremities: no cyanosis Skin: no rashes Psychiatric: lethargic Hosp A/P - Plan -Assessment (1) Small bowel obstruction Code(s): K56.609 - UNSP INTESTNL OBST, UNSP TO PARTIAL VERSUS COMPLETE OBST Status: Acute (2) Ascites Code(s): R18.8 - OTHER ASCITES Status: Acute (3) History of prostate cancer Code(s): Z85.46 - PERSONAL HISTORY OF MALIGNANT NEOPLASM OF PROSTATE Status: Chronic (4) Hypertension Code(s): I10 - ESSENTIAL (PRIMARY) HYPERTENSION Status: Chronic (5) Hyponatremia Code(s): E87.1 - HYPO-OSMOLALITY AND HYPONATREMIA Status: Chronic - Plan Small bowel follow-through study indicated obstruction. Patient underwent surgery today. Sodium improved to 134. Monitor vital signs, titrate antihypertensives as needed.
[2020-08-06] MEDS: Ketorolac Tromethamine 30 MG/ML VIAL IVP SCH ×2 (18:03→23:30)
--- NOTE | 2020-08-06 18:36 | OP ---
DATE OF PROCEDURE: 08/06/2020 PREOPERATIVE DIAGNOSES: Bowel obstruction secondary to adhesions, multiple prior operations, multiple operations for small-bowel obstruction, history of prostatectomy, malnutrition, poor IV access, central line placed last night. 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 PROCEDURES PERFORMED: Exploratory laparotomy, extensive adhesiolysis for more than 1 hour, right colectomy, primary anastomosis, ileotransverse colostomy, closure of serosal tear, stapler. ANESTHESIA: General, TAP block. ESTIMATED BLOOD LOSS: Less than 50 mL. BLOOD TRANSFUSION: None. FINDINGS: This patient had extensive adhesions taking more than an hour to takedown. He had obstructive band in the terminal ileum creating a stricture and narrowing with some questionable viability, requiring right colectomy. Single enterotomy with minimal spillage. SINDY incisional suction dressing applied over closed wound with loose kyara. DESCRIPTION OF PROCEDURE: The patient was taken to the operating room, where under general anesthesia and TAP block, abdomen was clipped of hair, prepared with ChloraPrep, and draped in routine fashion. Brewer catheter was then placed. Midline incision was made through the old midline scar, carried down through the skin and subcutaneous tissue, midline fascia, entered the abdominal cavity sharply. There was ascitic fluid from the bowel obstructive process, evacuated with suction. Adhesiolysis was carried out freeing adhesions from the abdominal wall with sharp and blunt dissection and cautery. Adhesiolysis was carried out for more than an hour, freeing adhesions from inter-bowel loops and pelvis. There was a tight stricture band at the root of the mesentery causing obstructive process in the terminal ileum, a few centimeters from the ileocecal valve. Once freed, this created a stricture area of the small bowel with some relative narrowing. It was felt that there was questionable viability and the stricture might create some obstruction. Thus, a right colectomy was undertaken. Right colon was mobilized using cautery and blunt dissection. Duodenum was identified, kept free of harm proximal to the strictured area, divided with a ROSALIE stapler. Mesentery was serially divided with fires of the LigaSure and right colon removed, submitted to Pathology. Ileocolostomy performed with a staple technique, 2 fires of 75 ROSALIE stapler. Good staple closure achieved. Mesenteric defect closed with 3-0 silk. Staple line reinforced with interrupted Lembert suture of 3-0 silk. Good anastomosis palpated. Small bowel ran from the ligament of Treitz to ileocolostomy 4 times, closing serosal defects, there was 1 enterotomy sustained during the adhesiolysis process, closed with ROSALIE stapler. Good viability and closure achieved. Small-bowel contents had been milked retrograde into the stomach, evacuating 3 L of enteric contents out of the stomach. A new NG tube placed, 18-Croatian, palpated in proper position. His sponge and instrument counts were correct. Viscera was placed in the abdominal cavity. Good hemostasis was noted. Abdominal cavity had been thoroughly irrigated with saline solution, irrigant evacuated, and Seprafilm placed between the viscera and the abdominal wall, and fascia was closed with continuous suture of #1 PDS. The thin subcutaneous tissue was freed from the fascia with cautery and kyara applied to the skin after washing the wound with saline solution. SINDY dressing applied. The patient tolerated the procedure well. Job ID: [id number]
[2020-08-06] MEDS: Enoxaparin Sodium 40 MG/0.4 ML SYRINGE SC SCH (20:25)
[2020-08-07] MEDS: Piperacillin/Tazobactam 3.375 GM in Sodium Chloride 0.9% 100 ML IVPB SCH ×4 (05:09→23:36)
[2020-08-07] MEDS: Ketorolac Tromethamine 30 MG/ML VIAL IVP SCH ×4 (05:10→23:36)
[2020-08-07 06:34] LABS: Hemoglobin 9.6 g/dL (14.0-18.0); Mean Corpuscular HGB CONC 32.4 g/dL (32.0-36.0); Mean Corpuscular Hemoglobin 29.9 pg (27.0-31.0); Mean Corpuscular Volume 92.4 fL (78.0-98.0); Mean Platelet Volume 7.5 fL (7.4-10.4); Platelet Count 287 thou/uL (130-400); RBC Distribution Width 12.7 % (11.5-14.5); Red Blood Cell (RBC) Count 3.23 mill/uL (4.70-6.10); White Blood Cell (WBC) Count 7.7 thou/uL (4.8-10.8)
[2020-08-07 06:45] LABS: ALT (SGPT) 7 U/L (8-55); AST (SGOT) 11 U/L (5-34); Albumin 2.7 g/dL (3.4-4.8); Alkaline Phosphatase 40 U/L (40-110); Anion Gap 8 mmol/L (10-20); BUN (Urea Nitrogen) 24 mg/dL (8.4-25.7); Bilirubin, Total 0.4 mg/dL (0.2-1.2); Calc. Creatinine Clearance 71 mL/min (70-130); Calcium 8.1 mg/dL (7.8-10.44); Carbon Dioxide 30 mmol/L (23-31); Chloride 99 mmol/L (98-107); Estimated GFR-MDRD Greater than 90; Globulin 2.5 g/dL (2.4-3.5); Glucose 108 mg/dL (83-110); Potassium 4.3 mmol/L (3.5-5.1); Protein, Total 5.2 g/dL (5.8-8.1); Sodium 133 mmol/L (136-145)
[2020-08-07 07:21] LABS: Band 31 % (5-11); Eosinophils 1 % (0-10); Lymphocytes 5 % (21-51); MDiff Complete? YES; Monocytes 6 % (0-10); Neutrophil 57 % (42-75); Platelet Morphology Comment Appears Adequate; Polychromasia SLIGHT = 2-3 cells (100X) (0-2/hpf); Vacuoles SLIGHT
[2020-08-07] MEDS: Famotidine/PF 20 mg/2ml Vial SLOW IVP SCH ×2 (08:36→20:57)
--- NOTE | 2020-08-07 12:50 | PQF ---
Clinical Documentation Clarification Form Dear Dr. Manuela Baker Date: 08/07/20 8783 Please exercise your independent, professional judgment in responding to the clarification form. Clinical indicators are provided on the bottom of this form for your review. Please check appropriate box(es): [ ] Protein Calorie Malnutrition: [ ] Mild [ ] Moderate [ ] Severe [ ] Other Malnutrition (please specify) [ ] Cachexia [ ] Other diagnosis [ ] Unable to determine In addition, please specify: Present on Admission (POA): [ ] Yes [ ] No [ ] Unable to determine For continuity of documentation, please document condition throughout progress notes and discharge summary. Thank You. To be completed by CDI/Coding staff for physician review: CLINICAL INDICATORS - SIGNS / SYMPTOMS / LABS / RESULTS AND LOCATION IN MR RD Assessment: BMI 17.1 ; -10% weight loss over unknown time with severe muscle wasting observed to the temporal and trapezius muscle and severe fat loss to the intercostal area as well as the orbital fat pad suggestive of severe malnutrition likely in the context of a chronic condition. HPI: pt presented to the ED with a complaint of nausea and vomiting, abdominal pain and bloating. (H&P/[facility]) 08/03 RISK FACTORS / RESULTS AND LOCATION IN MR Advanced age (79), hx of small bowel obstruction, dx ascites , current every day tobacco smoker (H&P/ [employer]) 08/03 TREATMENT / RESULTS AND LOCATION IN MR Dietary consult 08/03 Recommend TPN (RD) Moderate Malnutrition (in acute illness) Energy Intake: <75% of estimated energy requirement for > 7 days Weight Loss: 1-2%/1 week; 5%/ 1 month; 7.5%/3 months Other: mild body fat loss; mild muscle mass loss; mild fluid accumulation; Severe Malnutrition (in acute illness) Energy Intake: _ 50% of estimated energy requirement for _ 5 days Weight Loss: >2%/1 week; >5%/1 month; >7.5%/3 months Other: moderate body fat loss; moderate muscle mass loss; moderate- severe fluid accumulation; 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 CDS Signature: Denise Haynes RN Phone #: [phone] Date: 08/07/20 This is a permanent part of the Medical Record [facility]
--- NOTE | 2020-08-07 13:17 | PDOC.HOSPP ---
- Subjective Encounter Date: 08/07/20 Encounter Time: 08:00 Subjective: Patient seen regarding small bowel obstruction for follow-up. He is more alert today. Continues to be n.p.o. - Objective Vital Signs & Weight: Vital Signs (12 hours) Temp Pulse Resp BP Pulse Ox 08/07/20 11:00 98.1 F 111 H 16 115/56 L 95 08/07/20 09:00 94 L 08/07/20 08:38 94 L 08/07/20 07:14 98.3 F 102 H 14 102/58 L 96 08/07/20 03:03 98.6 F 104 H 16 111/65 98 Weight Admit Weight 122 lb Weight 125 lb 14.4 oz I&O: 08/06/20 08/07/20 08/08/20 06:59 06:59 06:59 Intake Total 800 4677.45 Output Total 2700 2214 Balance -1900 2463.45 Result Diagrams: 08/07/20 06:00 08/07/20 06:00 Additional Labs: Accuchecks 08/07/20 12:07 POC Glucose 109 H I reviewed patient's labs and MAR Hospitalist ROS - Review of Systems Gastrointestinal: reports: constipation. denies: nausea, vomiting, abdominal pain, diarrhea, melena, hematochezia Genitourinary: denies: dysuria, frequency, incontinence, hematuria, retention - Medication Medications: Active Medications Generic Name Dose Route Start Last Admin Trade Name Freq PRN Reason Stop Dose Admin Enoxaparin Sodium 40 mg 08/06/20 21:00 08/06/20 20:25 Enoxaparin Sodium 40 Mg/0.4 Ml Syringe SC 40 mg 2100 MAE Administration Famotidine 20 mg 08/03/20 09:00 08/07/20 08:36 Famotidine/Pf 20 Mg/2ml Vial SLOW IVP 20 mg Q12HR MAE Administration Sodium Chloride 1,000 mls @ 75 mls/hr 08/03/20 03:15 08/06/20 18:06 Normal Saline 0.9% IV 1,000 mls .[id number] MAE Administration Piperacillin Sod/Tazobactam 100 mls @ 200 mls/hr 08/05/20 06:00 08/07/20 12:06 Sod 3.375 gm/ Sodium Chloride IVPB 100 mls Q6HR MAE Administration Fat Emulsion Intravenous 250 2,296.23 mls @ 95.676 mls/hr 08/06/20 14:00 08/06/20 14:06 ml/ Sodium Acetate 70 meq/ IV 2,296.23 mls Insulin Human Regular 23 units 1400 MAE Administration / Multivitamins 10 ml/ Chromium/Copper/Manganese/ Seleni/Zn 1 ml/ Amino Acids/ Electrolytes Ketorolac Tromethamine 15 mg 08/06/20 18:00 08/07/20 12:08 Ketorolac Tromethamine 30 Mg/Ml Vial IVP 08/11/20 18:01 15 mg Q6HR MAE Administration Ondansetron HCl 4 mg 08/03/20 03:02 08/05/20 12:42 Ondansetron Pf 4 Mg/2 Ml Vial IVP 4 mg Q6H PRN Administration Nausea/Vomiting Sodium Chloride 10 ml 08/03/20 09:00 08/07/20 08:41 Flush - Normal Saline 10 Ml Syringe IVF 10 ml Q12HR MAE Administration - Exam General Appearance: awake alert Eye: anicteric sclera ENT: moist mucosa ENT - other findings: NG tube Neck: supple Heart: RRR Respiratory: CTAB Gastrointestinal: soft, non-tender Gastrointestinal - other findings: Abdominal wall dressing Extremities: no edema Skin: no rashes Psychiatric: normal affect Hosp A/P - Plan -Assessment (1) Small bowel obstruction Code(s): K56.609 - UNSP INTESTNL OBST, UNSP TO PARTIAL VERSUS COMPLETE OBST Status: Acute (2) Ascites Code(s): R18.8 - OTHER ASCITES Status: Acute (3) History of prostate cancer Code(s): Z85.46 - PERSONAL HISTORY OF MALIGNANT NEOPLASM OF PROSTATE Status: Chronic (4) Hypertension Code(s): I10 - ESSENTIAL (PRIMARY) HYPERTENSION Status: Chronic (5) Hyponatremia Code(s): E87.1 - HYPO-OSMOLALITY AND HYPONATREMIA Status: Chronic (6) moderate protein calorie malnutrition Status: Chronic, present on admission - Plan Patient had surgery for bowel obstruction yesterday. Patient continues to have NG tube output. Sodium 133 today. Hypertension controlled.
[2020-08-07] MEDS: Sodium Chloride 0.9% 1,000 ML IV SCH ×2 (14:00→18:15)
[2020-08-07] MEDS: FAT EMULSION IV SCH (14:12)
[2020-08-07] MEDS: HUMULIN R IV SCH (14:12)
[2020-08-07] MEDS: SODIUM ACETATE IV SCH (14:12)
[2020-08-07] MEDS: [UNRECOGNIZED DRUG - OTHER] IV SCH (14:12)
--- NOTE | 2020-08-07 17:46 | PRG ---
DATE OF SERVICE: 08/07/2020 SUBJECTIVE: Grady Mayer is doing well today. He feels much better. He is having less abdominal pain. OBJECTIVE: VITAL SIGNS: Temperature 98.2 degrees, pulse 109, blood pressure 130/75. NG tube output in the last 24 hours 775. Urine output 800. LUNGS: Clear to auscultation. CARDIAC: Regular rate and rhythm without murmur or gallop. ABDOMEN: Soft. SINDY incisional suction device in place. EXTREMITIES: Unremarkable. ASSESSMENT AND PLAN: Resolving postoperative ileus. Await GI function. Continue G-tube suction. Continue TPN. Hemoglobin 9.6, hematocrit 29, white count 7. Basic metabolic profile; sodium 133, potassium 4.3. Job ID: [id number]
[2020-08-07] MEDS: Enoxaparin Sodium 40 MG/0.4 ML SYRINGE SC SCH (20:57)
[2020-08-08] MEDS: Piperacillin/Tazobactam 3.375 GM in Sodium Chloride 0.9% 100 ML IVPB SCH ×4 (05:20→23:14)
[2020-08-08] MEDS: Ketorolac Tromethamine 30 MG/ML VIAL IVP SCH ×4 (05:28→23:14)
[2020-08-08] MEDS: Sodium Chloride 0.9% 1,000 ML IV SCH (06:09)
[2020-08-08 06:27] LABS: #Eosinphils 0.2 thou/uL (0.0-0.7); #Lymphocytes 0.6 thou/uL (1.20-3.40); #Monocytes 0.4 thou/uL (0.11-0.59); #Neutrophils 8.5 thou/uL (1.40-6.50); %Basophils 0.3 % (0.0-1.0); %Eosinophils 2.1 % (0.0-10.0); %Lymphocytes 6.1 % (21.0-51.0); %Neutrophils 87.6 % (42.0-75.0); Hemoglobin 9.5 g/dL (14.0-18.0); Mean Corpuscular HGB CONC 31.1 g/dL (32.0-36.0); Mean Corpuscular Hemoglobin 29.2 pg (27.0-31.0); Mean Corpuscular Volume 93.9 fL (78.0-98.0); Mean Platelet Volume 7.3 fL (7.4-10.4); Platelet Count 254 thou/uL (130-400); RBC Distribution Width 12.7 % (11.5-14.5); Red Blood Cell (RBC) Count 3.26 mill/uL (4.70-6.10); White Blood Cell (WBC) Count 9.7 thou/uL (4.8-10.8)
[2020-08-08 06:52] LABS: ALT (SGPT) 10 U/L (8-55); AST (SGOT) 15 U/L (5-34); Albumin 2.7 g/dL (3.4-4.8); Alkaline Phosphatase 64 U/L (40-110); Anion Gap 9 mmol/L (10-20); BUN (Urea Nitrogen) 20 mg/dL (8.4-25.7); Bilirubin, Total 0.4 mg/dL (0.2-1.2); Calc. Creatinine Clearance 82 mL/min (70-130); Calcium 8.4 mg/dL (7.8-10.44); Carbon Dioxide 30 mmol/L (23-31); Chloride 99 mmol/L (98-107); Estimated GFR-MDRD Greater than 90; Globulin 3.1 g/dL (2.4-3.5); Glucose 90 mg/dL (83-110); Potassium 4.3 mmol/L (3.5-5.1); Protein, Total 5.8 g/dL (5.8-8.1); Sodium 134 mmol/L (136-145)
[2020-08-08] MEDS: Famotidine/PF 20 mg/2ml Vial SLOW IVP SCH ×2 (08:35→20:40)
--- NOTE | 2020-08-08 12:15 | PDOC.HOSPP ---
- Subjective Encounter Date: 08/08/20 Encounter Time: 09:40 Subjective: Patient seen in follow-up for bowel obstruction. Denies any abdominal pain. Reports that he thinks he is passing flatus occasionally. - Objective Vital Signs & Weight: Vital Signs (12 hours) Temp Pulse Resp BP Pulse Ox 08/08/20 11:45 97.6 F 105 H 20 183/98 H 96 08/08/20 07:00 97.6 F 103 H 20 170/81 H 97 08/08/20 00:20 97.9 F 109 H 16 155/76 H 98 Weight Admit Weight 122 lb Weight 125 lb 14.4 oz I&O: 08/07/20 08/08/20 08/09/20 06:59 06:59 06:59 Intake Total 4677.45 3764 Output Total 2214 1350 Balance 2463.45 2414 Result Diagrams: 08/08/20 06:20 08/08/20 06:20 Additional Labs: Accuchecks 08/08/20 08/08/20 08/07/20 11:08 06:27 18:32 POC Glucose 112 H 86 100 08/07/20 12:07 POC Glucose 109 H I reviewed patient's labs and MAR Hospitalist ROS - Review of Systems Cardiovascular: denies: chest pain, palpitations, orthopnea, paroxysmal noc. dyspnea, edema, light headedness Gastrointestinal: reports: constipation. denies: nausea, vomiting, abdominal pain, diarrhea, melena, hematochezia - Medication Medications: Active Medications Generic Name Dose Route Start Last Admin Trade Name Freq PRN Reason Stop Dose Admin Enoxaparin Sodium 40 mg 08/06/20 21:00 08/07/20 20:57 Enoxaparin Sodium 40 Mg/0.4 Ml Syringe SC 40 mg 2100 MAE Administration Famotidine 20 mg 08/03/20 09:00 08/08/20 08:35 Famotidine/Pf 20 Mg/2ml Vial SLOW IVP 20 mg Q12HR MAE Administration Piperacillin Sod/Tazobactam 100 mls @ 200 mls/hr 08/05/20 06:00 08/08/20 05:20 Sod 3.375 gm/ Sodium Chloride IVPB 100 mls Q6HR MAE Administration Fat Emulsion Intravenous 250 2,296.23 mls @ 95.676 mls/hr 08/06/20 14:00 08/07/20 14:12 ml/ Sodium Acetate 70 meq/ IV 2,296.23 mls Insulin Human Regular 23 units 1400 MAE Administration / Multivitamins 10 ml/ Chromium/Copper/Manganese/ Seleni/Zn 1 ml/ Amino Acids/ Electrolytes Sodium Chloride 1,000 mls @ 35 mls/hr 08/07/20 17:29 08/08/20 06:09 Normal Saline 0.9% IV 1,000 mls .Q24H MAE Administration Ketorolac Tromethamine 15 mg 08/06/20 18:00 08/08/20 05:28 Ketorolac Tromethamine 30 Mg/Ml Vial IVP 08/11/20 18:01 15 mg Q6HR MAE Administration Ondansetron HCl 4 mg 08/03/20 03:02 08/05/20 12:42 Ondansetron Pf 4 Mg/2 Ml Vial IVP 4 mg Q6H PRN Administration Nausea/Vomiting Sodium Chloride 10 ml 08/03/20 09:00 08/08/20 08:36 Flush - Normal Saline 10 Ml Syringe IVF 10 ml Q12HR MAE Administration - Exam Eye: anicteric sclera Neck: supple Heart: RRR Respiratory: CTAB Gastrointestinal: soft, non-tender, diminished bowl sounds Neurological: cranial nerve grossly intact Psychiatric: normal affect Hosp A/P - Plan -Assessment (1) Small bowel obstruction Code(s): K56.609 - UNSP INTESTNL OBST, UNSP TO PARTIAL VERSUS COMPLETE OBST Status: Acute (2) Ascites Code(s): R18.8 - OTHER ASCITES Status: Acute (3) History of prostate cancer Code(s): Z85.46 - PERSONAL HISTORY OF MALIGNANT NEOPLASM OF PROSTATE Status: Chronic (4) Hypertension Code(s): I10 - ESSENTIAL (PRIMARY) HYPERTENSION Status: Chronic (5) Hyponatremia Code(s): E87.1 - HYPO-OSMOLALITY AND HYPONATREMIA Status: Chronic (6) moderate protein calorie malnutrition Status: Chronic, present on admission - Plan Status post surgery for bowel obstruction. Improving slowly. Currently n.p.o. Receiving TPN. Has NG tube. Hypertension controlled. Sodium improved 134.
[2020-08-08] MEDS ORDERED: Sodium Chloride 0.9% 1,000 ML IV SCH (14:28)
--- NOTE | 2020-08-08 14:40 | PRG ---
DATE OF SERVICE: 08/08/2020 SUBJECTIVE: Mr. Mayer is doing well today. He is on the surgical floor. He hopes to get rid of his NG tube soon. He reports having passed flatus. OBJECTIVE: VITAL SIGNS: Temperature 97.6 degrees, pulse 105, blood pressure 183/98. NG tube output in the last 24 hours, 100 mL. Brewer output 1250. LUNGS: Clear to auscultation. CARDIAC: Regular rate and rhythm without murmur or gallop. ABDOMEN: Soft. SINDY incisional suction device is in place. EXTREMITIES: Unremarkable. LABORATORY DATA: White count 9 and hemoglobin 9.5. Basic metabolic profile normal. Sodium 134. ASSESSMENT AND PLAN: The patient is doing well. We would plan to remove his nasogastric tube and Brewer today. Continue sips and chips. Begin clear liquids in the morning. Increase activity. Job ID: [id number]
[2020-08-08] MEDS: FAT EMULSION IV SCH (15:37)
[2020-08-08] MEDS: HUMULIN R IV SCH (15:37)
[2020-08-08] MEDS: SODIUM ACETATE IV SCH (15:37)
[2020-08-08] MEDS: [UNRECOGNIZED DRUG - OTHER] IV SCH (15:37)
[2020-08-08] MEDS: Enoxaparin Sodium 40 MG/0.4 ML SYRINGE SC SCH (20:40)
[2020-08-08] MEDS: Labetalol HCl 100 MG/20 ML VIAL SLOW IVP PRN (20:41)
[2020-08-09] MEDS: Piperacillin/Tazobactam 3.375 GM in Sodium Chloride 0.9% 100 ML IVPB SCH ×4 (05:06→23:10)
[2020-08-09] MEDS: Ketorolac Tromethamine 30 MG/ML VIAL IVP SCH ×4 (05:06→23:10)
[2020-08-09] MEDS: Famotidine/PF 20 mg/2ml Vial SLOW IVP SCH ×2 (08:58→20:00)
--- NOTE | 2020-08-09 09:55 | PRG ---
DATE OF SERVICE: 08/09/2020 SUBJECTIVE: Grady Mayer, this morning, does not have any nausea or vomiting. He passed flatus, but has not had a bowel movement. OBJECTIVE: VITAL SIGNS: Temperature 97.9 degrees, pulse 104, and blood pressure 175/100. LUNGS: Clear to auscultation. CARDIAC: Regular rate and rhythm with no murmur, rub, or gallop. ABDOMEN: Soft. Luis Fernando suction device over wound, which has been closed with kyara. Bowel sounds occasional plus flatus. EXTREMITIES: Unremarkable. LABORATORY DATA: None this morning. Accu-Cheks 112 to 125, being obtained because he is on TPN. ASSESSMENT AND PLAN: Doing well. Continue TPN until we are sure that he is tolerating his diet. Continue clear liquids today. If he does well, advance to full liquids tomorrow. His NG tube and Brewer catheter have been removed. He is urinating without problems. Malnutrition, continue TPN. Deconditioning, continue therapy and ambulation. Job ID: [id number]
[2020-08-09] MEDS: Labetalol HCl 100 MG/20 ML VIAL SLOW IVP PRN (12:55)
[2020-08-09] MEDS: [UNRECOGNIZED DRUG - OTHER] IV SCH (14:59)
[2020-08-09] MEDS: FAT EMULSION IV SCH (14:59)
[2020-08-09] MEDS: HUMULIN R IV SCH (14:59)
[2020-08-09] MEDS: SODIUM ACETATE IV SCH (14:59)
--- NOTE | 2020-08-09 17:42 | PDOC.HOSPP ---
- Subjective Encounter Date: 08/09/20 Encounter Time: 10:40 Subjective: Patient seen for follow-up for small bowel obstruction. Denies any complaints. Reports feeling well. - Objective Vital Signs & Weight: Vital Signs (12 hours) Temp Pulse Resp BP BP Pulse Ox 08/09/20 15:37 97.6 F 95 16 173/94 H 99 08/09/20 12:55 106 H 180/99 H 08/09/20 11:10 97.6 F 106 H 18 173/99 H 96 08/09/20 08:58 100 08/09/20 07:25 97.9 F 104 H 18 175/100 H 100 Weight Admit Weight 122 lb Weight 125 lb 14.4 oz I&O: 08/08/20 08/09/20 08/10/20 06:59 06:59 06:59 Intake Total 3764 3754 Output Total 1350 1550 Balance 2414 2204 Result Diagrams: 08/08/20 06:20 08/08/20 06:20 Additional Labs: Accuchecks 08/09/20 08/09/20 08/08/20 11:10 05:42 23:42 POC Glucose 106 H 112 H 125 H 08/08/20 18:17 POC Glucose 124 H Labs and MAR reviewed by ks Hospitalist ROS - Review of Systems Constitutional: denies: fever, chills, sweats, weakness Gastrointestinal: reports: constipation. denies: nausea, vomiting, abdominal pain, diarrhea, melena, hematochezia Skin: denies: rash, lesions, jose - Medication Medications: Active Medications Generic Name Dose Route Start Last Admin Trade Name Maximilianoq PRN Reason Stop Dose Admin Enoxaparin Sodium 40 mg 08/06/20 21:00 08/08/20 20:40 Enoxaparin Sodium 40 Mg/0.4 Ml Syringe SC 40 mg 2100 MAE Administration Famotidine 20 mg 08/03/20 09:00 08/09/20 08:58 Famotidine/Pf 20 Mg/2ml Vial SLOW IVP 20 mg Q12HR MAE Administration Piperacillin Sod/Tazobactam 100 mls @ 200 mls/hr 08/05/20 06:00 08/09/20 11:44 Sod 3.375 gm/ Sodium Chloride IVPB 100 mls Q6HR MAE Administration Fat Emulsion Intravenous 250 2,296.23 mls @ 95.676 mls/hr 08/06/20 14:00 08/09/20 14:59 ml/ Sodium Acetate 70 meq/ IV 2,296.23 mls Insulin Human Regular 23 units 1400 MAE Administration / Multivitamins 10 ml/ Chromium/Copper/Manganese/ Seleni/Zn 1 ml/ Amino Acids/ Electrolytes Ketorolac Tromethamine 15 mg 08/06/20 18:00 08/09/20 11:44 Ketorolac Tromethamine 30 Mg/Ml Vial IVP 08/11/20 18:01 15 mg Q6HR MAE Administration Labetalol HCl 10 mg 08/08/20 12:19 08/09/20 12:55 Labetalol Hcl 100 Mg/20 Ml Vial SLOW IVP 10 mg Q4H PRN Administration SBP Greater Than 180 Ondansetron HCl 4 mg 08/03/20 03:02 08/05/20 12:42 Ondansetron Pf 4 Mg/2 Ml Vial IVP 4 mg Q6H PRN Administration Nausea/Vomiting Sodium Chloride 10 ml 08/03/20 09:00 08/09/20 08:58 Flush - Normal Saline 10 Ml Syringe IVF 10 ml Q12HR MAE Administration - Exam General Appearance: awake alert Eye: anicteric sclera ENT: moist mucosa Neck: supple Heart: RRR Respiratory: CTAB Gastrointestinal: soft, non-tender Skin: no rashes Psychiatric: normal affect Hosp A/P - Plan -Assessment (1) Small bowel obstruction Code(s): K56.609 - UNSP INTESTNL OBST, UNSP TO PARTIAL VERSUS COMPLETE OBST Status: Acute (2) Ascites Code(s): R18.8 - OTHER ASCITES Status: Acute (3) History of prostate cancer Code(s): Z85.46 - PERSONAL HISTORY OF MALIGNANT NEOPLASM OF PROSTATE Status: Chronic (4) Hypertension Code(s): I10 - ESSENTIAL (PRIMARY) HYPERTENSION Status: Chronic (5) Hyponatremia Code(s): E87.1 - HYPO-OSMOLALITY AND HYPONATREMIA Status: Chronic (6) moderate protein calorie malnutrition Status: Chronic, present on admission - Plan Patient has been started on clear liquid diet. Check a.m. labs. Blood pressures are still high. Discontinue labetalol as needed, add clonidine patch and continue as needed enalapril. Monitor vital signs, titrate antihypertensives as needed.
[2020-08-09] MEDS: Enoxaparin Sodium 40 MG/0.4 ML SYRINGE SC SCH (20:00)
[2020-08-09] MEDS ORDERED: cloNIDine 0.1mg/24 Hour PATCH TD SCH (20:00)
[2020-08-10 04:29] LABS: #Eosinphils 0.2 thou/uL (0.0-0.7); #Lymphocytes 0.9 thou/uL (1.20-3.40); #Monocytes 0.5 thou/uL (0.11-0.59); #Neutrophils 5.7 thou/uL (1.40-6.50); %Basophils 0.1 % (0.0-1.0); %Eosinophils 2.7 % (0.0-10.0); %Lymphocytes 12.1 % (21.0-51.0); %Monocytes 6.5 % (0.0-10.0); %Neutrophils 78.6 % (42.0-75.0); Hemoglobin 9.4 g/dL (14.0-18.0); Mean Corpuscular Hemoglobin 30.1 pg (27.0-31.0); Mean Platelet Volume 7.4 fL (7.4-10.4); Platelet Count 252 thou/uL (130-400); RBC Distribution Width 12.7 % (11.5-14.5); Red Blood Cell (RBC) Count 3.11 mill/uL (4.70-6.10); White Blood Cell (WBC) Count 7.3 thou/uL (4.8-10.8)
[2020-08-10 04:50] LABS: Anion Gap 8 mmol/L (10-20); BUN (Urea Nitrogen) 18 mg/dL (8.4-25.7); Calc. Creatinine Clearance 86 mL/min (70-130); Calcium 8.5 mg/dL (7.8-10.44); Carbon Dioxide 35 mmol/L (23-31); Chloride 97 mmol/L (98-107); Estimated GFR-MDRD Greater than 90; Glucose 89 mg/dL (83-110); Potassium 4.3 mmol/L (3.5-5.1); Sodium 136 mmol/L (136-145)
[2020-08-10] MEDS: Piperacillin/Tazobactam 3.375 GM in Sodium Chloride 0.9% 100 ML IVPB SCH ×4 (05:08→23:52)
[2020-08-10] MEDS: Ketorolac Tromethamine 30 MG/ML VIAL IVP SCH ×4 (05:08→23:53)
[2020-08-10] MEDS: Famotidine/PF 20 mg/2ml Vial SLOW IVP SCH (08:13)
[2020-08-10] MEDS ORDERED: FAT EMULSION IV SCH (14:00)
[2020-08-10] MEDS ORDERED: HUMULIN R IV SCH (14:00)
[2020-08-10] MEDS ORDERED: [UNRECOGNIZED DRUG - OTHER] IV SCH (14:00)
[2020-08-10] MEDS ORDERED: SODIUM ACETATE IV SCH (14:00)
--- NOTE | 2020-08-10 14:59 | PDOC.HOSPP ---
- Subjective Encounter Date: 08/10/20 Encounter Time: 09:40 Subjective: Patient seen for follow-up for bowel obstruction. Sleepy but arousable, denies any complaints. - Objective Vital Signs & Weight: Vital Signs (12 hours) Temp Pulse Resp BP Pulse Ox 08/10/20 12:23 98.3 F 99 16 160/91 H 95 08/10/20 08:13 99 08/10/20 07:28 97.6 F 99 12 170/91 H 99 08/10/20 03:54 97.9 F 100 16 159/82 H 100 Weight Admit Weight 122 lb Weight 125 lb 14.4 oz I&O: 08/09/20 08/10/20 08/11/20 06:59 06:59 06:59 Intake Total 3754 3806.2 Output Total 1550 800 Balance 2204 3006.2 Result Diagrams: 08/10/20 04:16 08/10/20 04:16 Additional Labs: Accuchecks 08/10/20 08/10/20 08/10/20 11:31 05:25 00:06 POC Glucose 106 H 105 H 118 H 08/09/20 18:10 POC Glucose 98 I reviewed patient's labs and MAR Hospitalist ROS - Review of Systems Gastrointestinal: reports: constipation. denies: nausea, vomiting, abdominal pain, diarrhea, melena, hematochezia Genitourinary: denies: dysuria, frequency, hematuria, retention - Medication Medications: Active Medications Generic Name Dose Route Start Last Admin Trade Name Maximilianoq PRN Reason Stop Dose Admin Clonidine 0.1 mg 08/09/20 20:00 08/09/20 20:00 Clonidine 0.1mg/24 Hour Patch TD 0.1 mg Q7D MAE Administration Enoxaparin Sodium 40 mg 08/06/20 21:00 08/09/20 20:00 Enoxaparin Sodium 40 Mg/0.4 Ml Syringe SC 40 mg 2100 MAE Administration Famotidine 20 mg 08/03/20 09:00 08/10/20 08:13 Famotidine/Pf 20 Mg/2ml Vial SLOW IVP 20 mg Q12HR MAE Administration Piperacillin Sod/Tazobactam 100 mls @ 200 mls/hr 08/05/20 06:00 08/10/20 11:21 Sod 3.375 gm/ Sodium Chloride IVPB 100 mls Q6HR MAE Administration Ketorolac Tromethamine 15 mg 08/06/20 18:00 08/10/20 11:21 Ketorolac Tromethamine 30 Mg/Ml Vial IVP 08/11/20 18:01 15 mg Q6HR MAE Administration Ondansetron HCl 4 mg 08/03/20 03:02 08/05/20 12:42 Ondansetron Pf 4 Mg/2 Ml Vial IVP 4 mg Q6H PRN Administration Nausea/Vomiting Sodium Chloride 10 ml 08/03/20 09:00 08/10/20 08:13 Flush - Normal Saline 10 Ml Syringe IVF 10 ml Q12HR MAE Administration - Exam General Appearance: awake alert Eye: anicteric sclera ENT: moist mucosa Neck: supple Heart: RRR Respiratory: CTAB Gastrointestinal: soft, non-tender Skin: no rashes Psychiatric: normal affect Hosp A/P - Plan -Assessment (1) Small bowel obstruction Code(s): K56.609 - UNSP INTESTNL OBST, UNSP TO PARTIAL VERSUS COMPLETE OBST Status: Acute (2) Ascites Code(s): R18.8 - OTHER ASCITES Status: Acute (3) History of prostate cancer Code(s): Z85.46 - PERSONAL HISTORY OF MALIGNANT NEOPLASM OF PROSTATE Status: Chronic (4) Hypertension Code(s): I10 - ESSENTIAL (PRIMARY) HYPERTENSION Status: Chronic (5) Hyponatremia Code(s): E87.1 - HYPO-OSMOLALITY AND HYPONATREMIA Status: Chronic (6) moderate protein calorie malnutrition Status: Chronic, present on admission - Plan Patient tolerating full fluid diet. Blood pressures are still high. Start amlodipine.
[2020-08-10] MEDS ORDERED: Amlodipine 5 MG TAB PO SCH (15:15)
[2020-08-10] MEDS ORDERED: Enalaprilat Dihydrate 1.25 MG/ML VIAL SLOW IVP PRN (17:24)
[2020-08-10] MEDS ORDERED: traMADol HCl 50 MG TAB PO PRN (19:21)
[2020-08-10] MEDS ORDERED: Acetaminophen 500 MG TAB PO PRN (19:21)
--- NOTE | 2020-08-10 20:15 | PRG ---
DATE OF SERVICE: 08/10/2020 SUBJECTIVE: Grady Mayer is doing well today. He is tolerating his diet. He has had a bowel movement. Yesterday he is passing flatus today. He has not had any nausea or vomiting. OBJECTIVE: VITAL SIGNS: Temperature 97.7 degrees, 105, 160/90. LUNGS: Clear to auscultation. CARDIAC: Regular rate and rhythm. No murmur, rub, or gallop. ABDOMEN: Soft. Bowel sounds present. Slightly tympanitic. SINDY wound dressing in place. TPN infusing. DATA: Laboratories repeated today look normal. White count 7 and hemoglobin 9.4. ASSESSMENT AND PLAN: The patient is doing well post postoperative laparotomy, lysis of adhesions, right colectomy. Pathology, right colon specimen reveals absence of any malignancy, viable margins. The patient is deconditioning, awaiting rehab evaluation. The patient's TPN will be discontinued after this bag. He will be saline locked. He will advance to a regular diet. He may be ready to be discharged to rehab in the next day or two. Job ID: [id number]
[2020-08-10] MEDS: Gabapentin 300 MG CAP PO SCH (20:57)
[2020-08-10] MEDS: Enoxaparin Sodium 40 MG/0.4 ML SYRINGE SC SCH (20:57)
[2020-08-11] MEDS: Piperacillin/Tazobactam 3.375 GM in Sodium Chloride 0.9% 100 ML IVPB SCH ×3 (06:03→17:34)
[2020-08-11] MEDS: Ketorolac Tromethamine 30 MG/ML VIAL IVP SCH ×3 (06:03→17:34)
[2020-08-11] MEDS: Amlodipine 5 MG TAB PO SCH (08:37)
[2020-08-11] MEDS: Gabapentin 300 MG CAP PO SCH ×2 (08:38→20:46)
[2020-08-11] MEDS: Polyethylene Glycol 3350 17 GM Packet PO SCH (08:39)
--- NOTE | 2020-08-11 13:22 | EKG ---
Test Reason : Blood Pressure : / mmHG Vent. Rate : 096 BPM Atrial Rate : 096 BPM P-R Int : 156 ms QRS Dur : 080 ms QT Int : 358 ms P-R-T Axes : 080 057 086 degrees QTc Int : 452 ms Normal sinus rhythm Normal ECG No previous ECGs available Confirmed by DR. Fernanda CHA ([id number]) on 08/11/2020 1:22:01 PM Referred By: ELVIE Confirmed By:DR. Fernanda CHA
--- NOTE | 2020-08-11 16:55 | PDOC.HOSPP ---
- Subjective Encounter Date: 08/11/20 Encounter Time: 09:30 Subjective: Patient seen for follow-up regarding bowel obstruction. He is tolerating full fluid diet. Reports passing flatus, no bowel movement yet. - Objective Vital Signs & Weight: Vital Signs (12 hours) Temp Pulse Resp BP BP Pulse Ox 08/11/20 15:38 97.4 F L 103 H 20 134/74 92 L 08/11/20 11:23 98.2 F 108 H 18 135/82 92 L 08/11/20 09:57 103 H 166/92 H 08/11/20 08:37 102 H 179/99 H 08/11/20 08:20 97 08/11/20 07:45 98.1 F 102 H 16 179/99 H 97 Weight Admit Weight 122 lb Weight 125 lb 14.4 oz I&O: 08/10/20 08/11/20 08/12/20 06:59 06:59 06:59 Intake Total 3806.2 1967 Output Total 800 950 Balance 3006.2 1017 Result Diagrams: 08/10/20 04:16 08/10/20 04:16 Additional Labs: Accuchecks 08/10/20 08/10/20 23:57 18:16 POC Glucose 103 H 88 Labs and MAR reviewed by al Hospitalist ROS - Review of Systems Cardiovascular: denies: chest pain, palpitations, orthopnea, paroxysmal noc. dyspnea, edema, light headedness Gastrointestinal: reports: constipation. denies: nausea, vomiting, abdominal pain, diarrhea, melena, hematochezia - Medication Medications: Active Medications Generic Name Dose Route Start Last Admin Trade Name Freq PRN Reason Stop Dose Admin Amlodipine Besylate 5 mg 08/11/20 09:00 08/11/20 08:37 Amlodipine 5 Mg Tab PO 5 mg DAILY MAE Administration Clonidine 0.1 mg 08/09/20 20:00 08/09/20 20:00 Clonidine 0.1mg/24 Hour Patch TD 0.1 mg Q7D MAE Administration Enalaprilat 2.5 mg 08/10/20 17:24 08/10/20 17:44 Enalaprilat Dihydrate 1.25 Mg/Ml Vial SLOW IVP 2.5 mg Q6H PRN Administration SBP Greater Than 180 Enoxaparin Sodium 40 mg 08/06/20 21:00 08/10/20 20:57 Enoxaparin Sodium 40 Mg/0.4 Ml Syringe SC 40 mg 2100 MAE Administration Gabapentin 300 mg 08/10/20 21:00 08/11/20 08:38 Gabapentin 300 Mg Cap PO 300 mg BID MAE Administration Piperacillin Sod/Tazobactam 100 mls @ 200 mls/hr 08/05/20 06:00 08/11/20 11:35 Sod 3.375 gm/ Sodium Chloride IVPB 100 mls Q6HR MAE Administration Ketorolac Tromethamine 15 mg 08/06/20 18:00 08/11/20 11:34 Ketorolac Tromethamine 30 Mg/Ml Vial IVP 08/11/20 18:01 15 mg Q6HR MAE Administration Ondansetron HCl 4 mg 08/03/20 03:02 08/05/20 12:42 Ondansetron Pf 4 Mg/2 Ml Vial IVP 4 mg Q6H PRN Administration Nausea/Vomiting Polyethylene Glycol 17 gm 08/11/20 09:00 08/11/20 08:39 Polyethylene Glycol 3350 17 Gm Packet PO 17 gm DAILY MAE Administration Sodium Chloride 10 ml 08/03/20 09:00 08/11/20 08:42 Flush - Normal Saline 10 Ml Syringe IVF 10 ml Q12HR MAE Administration - Exam General Appearance: awake alert Eye: anicteric sclera ENT: no oropharyngeal lesions Neck: supple Heart: RRR Respiratory: CTAB Gastrointestinal: soft, non-tender, normal bowel sounds Psychiatric: normal affect, normal behavior Hosp A/P - Plan -Assessment (1) Small bowel obstruction Code(s): K56.609 - UNSP INTESTNL OBST, UNSP TO PARTIAL VERSUS COMPLETE OBST Status: Acute (2) Ascites Code(s): R18.8 - OTHER ASCITES Status: Acute (3) History of prostate cancer Code(s): Z85.46 - PERSONAL HISTORY OF MALIGNANT NEOPLASM OF PROSTATE Status: Chronic (4) Hypertension Code(s): I10 - ESSENTIAL (PRIMARY) HYPERTENSION Status: Chronic (5) Hyponatremia Code(s): E87.1 - HYPO-OSMOLALITY AND HYPONATREMIA Status: Chronic (6) moderate protein calorie malnutrition Status: Chronic, present on admission - Plan Patient was admitted on August 03, 2020 for bowel obstruction. Seen by general surgery service. She will be managed conservatively but did not improve. Small bowel x-rays on August 05 showed evidence of a high-grade small bowel obstruction at 3 hours and no progression since the 2-hour exam. On August 05 he underwent right subclavian central line placement. He was also started on TPN. On August 06 he underwent laboratory laparotomy and extensive adhesiolys is, right colectomy, primary anastomosis, ileotransverse colostomy. Diet has been advanced to regular diet last night. Hypertension improved today, amlodipine was resumed yesterday. Continue as nee ded Vasotec for blood pressure spikes. PT/OT Case management following for discharge planning to rehab. DVT prophylaxis with enoxaparin.
[2020-08-11] MEDS ORDERED: Albuterol Sulfate 2.5 mg/3 ml Neb NEB PRN (17:56)
[2020-08-11] MEDS ORDERED: Acetaminophen 500 MG TAB PO PRN (17:56)
--- NOTE | 2020-08-11 18:04 | PRG ---
DATE OF SERVICE: 08/11/2020 SUBJECTIVE: Grady Mayer is tolerating his diet. He has no complaints. He has no nausea or vomiting. He has had passed flatus and had bowel movements. OBJECTIVE: VITAL SIGNS: Temperature 97.4 degrees, pulse 103, blood pressure 134/74. LUNGS: Clear to auscultation. CARDIAC: Regular rate and rhythm without murmur, rub, or gallop. ABDOMEN: Soft, nontender. [place] intact. Luis Fernando suction device removed. ASSESSMENT AND PLAN: The patient is doing well. Plan to remove his central line prior to transfer to rehab. He has been accepted at rehab with the bed availability pending. The patient can be discharged home with a regular diet and to resume home medications. Follow up in my office in 2 to 3 weeks. Remove kyara next week. Job ID: [id number]
[2020-08-11] MEDS: Enoxaparin Sodium 40 MG/0.4 ML SYRINGE SC SCH (20:45)
[2020-08-11] MEDS: Amoxicillin/Potassium Clav 500 MG TAB PO SCH (20:45)
[2020-08-11] MEDS: Polymyxin B Sulf/Trimethoprim 10 ML OPHTH DROPS OP SCH ×2 (20:46→23:38)
[2020-08-12] MEDS: Polymyxin B Sulf/Trimethoprim 10 ML OPHTH DROPS OP SCH ×7 (03:49→18:01)
[2020-08-12] MEDS: Gabapentin 300 MG CAP PO SCH (08:30)
[2020-08-12] MEDS: Amlodipine 5 MG TAB PO SCH (08:30)
[2020-08-12] MEDS: Amoxicillin/Potassium Clav 500 MG TAB PO SCH (08:30)
[2020-08-12] MEDS: Polyethylene Glycol 3350 17 GM Packet PO SCH (08:31)
[2020-08-12] MEDS ORDERED: Ferrous Sulfate 325 MG TAB PO SCH (09:00)
[2020-08-12] MEDS ORDERED: Ascorbic Acid 500 mg Chewable Tablet PO SCH (09:00)
--- NOTE | 2020-08-12 11:16 | PDOC.BPN ---
- Brief Progress Note Encounter Date: 08/12/20 Encounter Time: 11:15 Patient states that he is doing well this morning. He is having bowel movements. He denies any nausea. He is tolerating his diet without any difficulty. He is sitting up in a chair smiling. Abdomen-soft, flat, incisions clean dry and intact. Yessenia are in place. No erythema. Assessment-status post right hemicolectomy-patient seems to be doing very well. Whenever he is excepted at rehabilitation, remove central line prior to transfer. Yessenia need to be removed next week. Follow-up with Dr. Wilkins in 2 or 3 weeks.
[2020-08-12 15:31] VITALS: BP 115/70; TEMP 97.6
--- NOTE | 2020-08-12 17:22 | RAD ---
PORTABLE CHEST: 08/12/20 HISTORY: Hypoxia. COMPARISON: 08/05/20 exam. Heart size is within normal limits. The right sided subclavian line unchanged in position. The bibasi lar lung changes are very similar to the previous exam. Changes in the mid lung germain also stable. T here is bilateral effusions. The effusions may be slightly increased as compared to the prior exam. T his is probably just related to differences in technique. IMPRESSION: Relatively stable interstitial alveolar lung change and pleural effusions given the differences in te [place]. POS: OFF
[2020-08-12 17:23] LABS: Anion Gap 11 mmol/L (10-20); BUN (Urea Nitrogen) 25 mg/dL (8.4-25.7); Calc. Creatinine Clearance 76 mL/min (70-130); Calcium 8.2 mg/dL (7.8-10.44); Carbon Dioxide 33 mmol/L (23-31); Chloride 95 mmol/L (98-107); Estimated GFR-MDRD Greater than 90; Glucose 108 mg/dL (83-110); Potassium 4.4 mmol/L (3.5-5.1); Sodium 135 mmol/L (136-145)
--- NOTE | 2020-08-14 10:01 | DIS ---
DATE OF ADMISSION: 08/03/2020 DATE OF DISCHARGE: 08/12/2020 DISCHARGE DIAGNOSES: 1. Acute small bowel obstruction, status post exploratory laparotomy with lysis of adhesions, right colectomy, and ileotransverse colostomy. 2. Acute hypoxic respiratory failure, possibly secondary to mild pulmonary edema versus pneumonia. 3. Anemia HISTORY OF PRESENT ILLNESS: This is a 79-year-old male, with a past medical history of hypertension, who presented to the emergency room with abdominal pain, nausea, vomiting. He was recently treated for small bowel obstruction nonoperatively 3 days prior to admission. The patient had CT scan of the abdomen and pelvis in the ER, which showed findings of a high grade small bowel obstruction. He also had ascites and a moderate sized left pleural effusion. The patient was admitted to the hospital for further workup. HOSPITAL COURSE: Small bowel obstruction: The patient was initially started on an NG tube with no significant improvement. He then had followup small bowel x-ray on 08/05, which showed persistent high-grade small bowel obstruction. The patient underwent exploratory laparotomy with lysis of adhesions, right colectomy, and ileotransverse colostomy on 08/06. Postoperatively, the patient did well. His NG tube was removed. The patient is tolerating a regular diet on the day of discharge. He is also having bowel movements. The patient will be discharged, to follow up with Dr. Wilkins in 2 weeks. His kyara will be removed in 1 week. He completed 7 days of antibiotics while in the hospital. Acute hypoxic respiratory failure, possibly secondary to mild pulmonary edema vs pneumonia The patient had a chest x-ray on admission which showed a pleural opacity at the left lung base . He completed 6 days of IV Zosyn and was transitioned to oral augmentin. He will complete 7 days of antibiotics today. Given his pleural effusions on chest x-ray we will discharge on Lasix 20 mg daily as well . Consider repeat chest X-ray in 6 weeks and a repeat BMP in a week. Anemia: The patient's hemoglobin was 9.4 at the time of discharge. Consider further workup as an outpatient. DISCHARGE PHYSICAL EXAMINATION: VITAL SIGNS: Temperature 97.6, heart rate 101, respiratory rate 16, O2 saturation 92% on room air, and blood pressure 115/70. GENERAL: The patient is alert, awake, oriented x3. CVS: Regular rate and rhythm. No murmurs, rubs, or gallops. LUNGS: Diminished breath sound at the bases. ABDOMEN: Positive bowel sounds, soft. Mild tenderness to palpation in the lower quadrants. His kyara are in place with no signs of infection. There is no erythema. EXTREMITIES: No edema. LABORATORY DATA: CBC on 08/10: White count 7.3, hemoglobin 9.4, hematocrit 29.2, platelet count 252. BMP on 08/12: Sodium 135, potassium 4.4, chloride 95, bicarb 33, creatinine 0.66, glucose 108. LFTs on 08/07: Normal. COVID PCR on 08/03: Negative. IMAGING: Chest x-ray on 08/03: Pleural and lung opacity in the left lung base. NG tube in place. CT abdomen on 08/03: High-grade distal small bowel obstruction with transition point in the right lower quadrant. Ascites. Moderate sized left pleural effusion and subcutaneous infiltration suggesting anasarca. Abdominal x-ray on 08/03: Esophagogastric distal tube in the proximal stomach. Small bowel x-ray on 08/05: High-grade small bowel obstruction. Chest x-ray on 08/12: Stable interstitial alveolar change and pleural effusions. DISCHARGE CONDITION: Stable. ACTIVITY: As tolerated. DIET: Heart healthy diet. DISCHARGE MEDICATIONS: 1. Augmentin 500 mg p.o. nightly, x1 tablet. 2. Furosemide 20 mg p.o. daily. All other home medications to be resumed. DISCHARGE INSTRUCTIONS: The patient should follow up with Dr. Wilkins in 2 to 3 weeks. [place] should be removed in a week. He will complete one more tablet of Augmentin tonight to complete a 7-day course of antibiotics. Please repeat chest x-ray in 6 weeks. He can start Lasix 20 mg daily and continue this for a week and consider discontinuation thereafter. Consider outpatient echo if not done. Job ID: [id number] MTDD
== END 2020-08-12 20:06 | DRG 329 ==
LOC: ERS 00:16 → SURG A 06:48
PROVIDERS: ADMIT Internal Medicine; ATTEND Internal Medicine
PROC: 02H633Z Insertion of Infusion Device into Right Atrium, Percutaneous Approach (ICD-10-PCS; 2020-08-05)
PROC: 0DBH0ZZ Excision of Cecum, Open Approach (ICD-10-PCS; principal; 2020-08-06)
PROC: 0DBF0ZZ Excision of Right Large Intestine, Open Approach (ICD-10-PCS; 2020-08-06)
PROC: 0DNU0ZZ Release Omentum, Open Approach (ICD-10-PCS; 2020-08-06)
PROC: 0DTF0ZZ Resection of Right Large Intestine, Open Approach (ICD-10-PCS; 2020-08-06)
DX: K56.609 Unspecified intestinal obstruction, unspecified as to partial versus complete obstruction (principal); J96.01 Acute respiratory failure with hypoxia; J18.9 Pneumonia, unspecified organism; E87.1 Hypo-osmolality and hyponatremia; R18.8 Other ascites; E44.0 Moderate protein-calorie malnutrition; Z68.1 Body mass index [BMI] 19.9 or less, adult; J90 Pleural effusion, not elsewhere classified; J81.1 Chronic pulmonary edema; K56.7 Ileus, unspecified; I10 Essential (primary) hypertension; F17.200 Nicotine dependence, unspecified, uncomplicated; D64.9 Anemia, unspecified; Z20.828 Contact with and (suspected) exposure to other viral communicable diseases; Z85.46 Personal history of malignant neoplasm of prostate; Z90.79 Acquired absence of other genital organ(s)
CPT/HCPCS: 36415; 36416; 71045; 74018; 74177; 74250; 80048; 80053; 80061; 83605; 83690; 83735; 84100; 84134; 84484; 85025; 85610; 85730; 87040; 87635; 88307; 90471; 90662; 93005; 93010; 96365; 96375; G0008; J1100; J1642; J1650; J1815; J1885; J2370; J2405; J2543; J2704; J2795; J3010; J3490; P9045; Q9963; Q9967; S0028; U0003

== ENCOUNTER 2020-08-23 23:59 | Inpatient (IN) | payer MEDICARE, MEDICAID ==
[2020-08-24 00:34] LABS: #Eosinphils 0.1 thou/uL (0.0-0.7); #Lymphocytes 1.1 thou/uL (1.20-3.40); #Monocytes 0.4 thou/uL (0.11-0.59); #Neutrophils 4.4 thou/uL (1.40-6.50); %Basophils 0.6 % (0.0-1.0); %Lymphocytes 18.7 % (21.0-51.0); %Monocytes 6.4 % (0.0-10.0); %Neutrophils 72.4 % (42.0-75.0); Hemoglobin 10.1 g/dL (14.0-18.0); Mean Corpuscular Hemoglobin 29.5 pg (27.0-31.0); Mean Corpuscular Volume 95.2 fL (78.0-98.0); Mean Platelet Volume 7.1 fL (7.4-10.4); Platelet Count 483 thou/uL (130-400); Red Blood Cell (RBC) Count 3.41 mill/uL (4.70-6.10); White Blood Cell (WBC) Count 6.1 thou/uL (4.8-10.8)
[2020-08-24 00:59] LABS: ALT (SGPT) 14 U/L (8-55); AST (SGOT) 17 U/L (5-34); Albumin 3.5 g/dL (3.4-4.8); Alkaline Phosphatase 118 U/L (40-110); Anion Gap 15 mmol/L (10-20); BUN (Urea Nitrogen) 8 mg/dL (8.4-25.7); Bilirubin, Total 0.3 mg/dL (0.2-1.2); Calc. Creatinine Clearance 0 mL/min (70-130); Calcium 8.7 mg/dL (7.8-10.44); Carbon Dioxide 27 mmol/L (23-31); Chloride 96 mmol/L (98-107); Estimated GFR-MDRD Greater than 90; Globulin 3.5 g/dL (2.4-3.5); Glucose 129 mg/dL (83-110); Potassium 4.2 mmol/L (3.5-5.1); Sodium 134 mmol/L (136-145)
[2020-08-24] MEDS ORDERED: Cefepime 2 GM VIAL ONE (02:29)
[2020-08-24] MEDS ORDERED: Furosemide 20 MG/2 ML VIAL ONE ×2 (02:29→13:57)
[2020-08-24 03:49] LABS: Troponin I 0.021 ng/mL (< 0.028)
[2020-08-24] MEDS ORDERED: Vancomycin 1 GM/200 ML BAG ONE (03:51)
[2020-08-24 06:58] LABS: Troponin I 0.024 ng/mL (< 0.028)
--- NOTE | 2020-08-24 07:13 | RAD ---
RADIOGRAPH CHEST 1 VIEW: DATE: 08/24/2020 TIME: 12:43 AM HISTORY: 79-year-old male with dyspnea COMPARISON: 08/12/2020 FINDINGS: Hyperinflation consistent with COPD. Hyperlucency of the lung apices. Hazy patchy infiltrate at right mid-upper lung zone horizontal orientation. Bilateral pleural effusions, left greater than right. No cardiomegaly or pneumothorax. Airspace opacity at left lower lobe. Interval removal of right subcl tami central venous catheter. Interval mild improvement in the mild haziness at right lower lung zone may or may not be merely technical. No other significant interval change. IMPRESSION: 1) emphysema 2) bilateral pleural effusions remain, left greater than right. 3) infiltrates at left lower lobe and right upper lobe, with no major interval change.
[2020-08-24 07:40] LABS: SARS-CoV-2 NAA Rapid Test Not Detected (NotDetected)
--- NOTE | 2020-08-24 08:01 | CT ---
PRELIMINARY REPORT/[facility]/EMERGENCY AFTER HOURS PROCEDURE: EXAM: CTA Chest with Intravenous Contrast CLINICAL HISTORY: DYSPNEA; 79 YR OLD MALE C/O BREATHING DIFFICULTY; HX EMPHYSEMA TECHNIQUE: Axial CTA images of the chest with intravenous contrast. Three-dimensional MIP/volume rend ered reformations were performed. CONTRAST: With; ISOVUE 370, 70ML COMPARISON: None provided. FINDINGS: PULMONARY ARTERIES There is no intraluminal filling defect suspicious for PE. AORTA No thoracic aortic aneurysm or dissection. LUNGS Emphysema. Consolidative opacities and interstitial thickening involving the posterior aspect of the right upper lobe PLEURAL SPACES Moderate bilateral pleural effusions with adjacent compressive atelectasis. No pneumothorax. HEART AND MEDIASTINUM No cardiomegaly. No significant pericardial effusion. Coronary artery atherosclerotic disease. LYMPH NODES No lymphadenopathy. BONES No focal osseous abnormality or acute fracture. CHEST WALL AND UPPER ABDOMEN Ascites. Images through the upper abdomen are otherwise unremarkable. The chest wall is unremarkable . IMPRESSION: 1. No acute pulmonary thromboembolism. 2. Moderate sized bilateral pleural effusions with adjacent compressive atelectasis. 3. Emphysema. Consolidative and interstitial opacities in the posterior aspect of the right upper l obe which could represent infection or underlying malignancy. Recommend close imaging follow-up. 4. Coronary artery atherosclerotic disease ELECTRONICALLY SIGNED BY: Thanh Sanderson DO Aug 24, 2020 1:17:16 AM AMMUNITION SPECIALIST This report is intended for review by the ordering physician only, in accordance of law. If you recei ve this report in error, please call [facility] at [phone]. FINAL REPORT CTA CHEST: Axial tomograms obtained following angio protocol with multiplanar reconstruction and 3D postprocessi ng. No evidence of pulmonary embolus. Bilateral pleural effusions with bibasilar atelectasis. Dense consolidation posterior right upper lobe. Emphysematous change. The above findings were described on preliminary report. I am in agreement with the preliminary repor t issued by [facility]. POS: AGW
[2020-08-24] MEDS ORDERED: Zolpidem Tartrate 5 MG TAB PO PRN (09:33)
[2020-08-24] MEDS ORDERED: Diabetic Tussin 200 MG/10 ML UDCUP PO PRN (09:33)
[2020-08-24] MEDS ORDERED: Bisacodyl 5 MG TAB PO PRN (09:33)
[2020-08-24] MEDS ORDERED: Acetaminophen 325 MG TAB PO PRN (09:33)
[2020-08-24] MEDS ORDERED: Ondansetron PF 4 MG/2 ML Vial IVP PRN (09:33)
[2020-08-24] MEDS ORDERED: Loratadine 10 MG TAB PO PRN (09:33)
[2020-08-24] MEDS ORDERED: HYDROcodone/Acetaminophen 5/325 mg Tablet PO PRN (09:33)
[2020-08-24] MEDS ORDERED: Benzonatate 100 MG CAP PO PRN (09:33)
[2020-08-24] MEDS ORDERED: Sodium Chloride 0.65% Nasal 44 ML BOT EA NARE PRN (09:33)
[2020-08-24] MEDS ORDERED: Senokot S 8.6-50 MG TAB PO PRN (09:33)
[2020-08-24] MEDS ORDERED: Loperamide HCl 2 MG CAP PO PRN (09:33)
[2020-08-24] MEDS ORDERED: hydrALAZINE 20 MG/ML VIAL SLOW IVP PRN (09:33)
[2020-08-24] MEDS ORDERED: Ondansetron ODT 4 MG TAB PO PRN (09:33)
[2020-08-24] MEDS ORDERED: Cepastat Lozenges 1 LOZ PO PRN (09:33)
[2020-08-24] MEDS ORDERED: Calcium Carbonate 500 MG ChewTAB PO PRN (09:33)
--- NOTE | 2020-08-24 10:20 | PDOC.HHP ---
Hospitalist HPI - History of Present Illness Shortness of breath History of Present Illness: 79-year-old male who was recently admitted in our hospital on August 03, 2020 at that time patient was diagnosed with a high-grade small bowel obstruction. Patient was treated with a conservatively with NG tube and low intermittent suction without any improvement so patient underwent surgery on August 06, 2020 . Patient required exploratory laparotomy and extensive adhesiolysis as well as a right colectomy and primary anastomosis, ileotransverse colostomy. After surgery patient remained in hospital until patient clinical condition improved and he was discharged home on August 14, 2020. Patient is poor historian he came back to the hospital with increasing shortness of breath. Patient is using oxygen 2 L nasal cannula at home but when paramedics arrived at the time he was saturating low. Patient was given albuterol and DuoNeb nebulization after that his oxygen saturation improved. In emergency room patient had chest x-ray which showed emphysema, bilateral pleural effusion left greater than right and suspected infiltrate in left lower lobe and right upper lobe. Subsequently patient had CT angiography which showed no evidence of pulmonary embolism and bilateral pleural effusion with bibasilar atelectasis and dense consolidation of posterior right upper lobe. Routine laboratory parameters showed hemoglobin 10.1 creatinine 0.82 BNP 257 and troponin were negative. His COVID-19 test came back negative. ED Course: In the emergency room patient is given cefepime and vancomycin as well as Lasix. Hospitalist ROS - Review of Systems Constitutional: reports: weakness, malaise. denies: fever, chills, sweats, other Eyes: denies: pain, vision change, conjunctivae inflammation, eyelid inflammation, redness, other Respiratory: reports: shortness of breath, SOB with excertion. denies: cough, dry, hemoptysis, pleuritic pain, sputum, wheezing, other Cardiovascular: denies: chest pain, palpitations, orthopnea, paroxysmal noc. dyspnea, edema, light headedness, other Gastrointestinal: denies: nausea, vomiting, abdominal pain, diarrhea, constipation, melena, hematochezia, other Genitourinary: denies: dysuria, frequency, incontinence, hematuria, retention, other Musculoskeletal: denies: neck pain, shoulder pain, arm pain, back pain, hand pain, leg pain, foot pain, other Skin: denies: rash, lesions, jose, bruising, other Neurological: denies: weakness, numbness, incoordination, change in speech, confusion, seizures, other - Medication Medications: Medication Instructions Recorded Confirmed Type ALButerol Sulfate [Ventolin Neb] 2 puff NEB Q6HR PRN 08/03/20 08/03/20 History Acetaminophen 500 mg PO Q4HR PRN 08/03/20 08/03/20 History Amlodipine [Norvasc] 5 mg PO DAILY 08/03/20 08/03/20 History Ascorbic Acid [Vitamin C Chewable 1,000 mg PO DAILY 08/03/20 08/03/20 History Tablet] Ferrous Sulfate [Iron] 325 mg PO DAILY 08/03/20 08/03/20 History Polymyxin B Sulf/Trimethoprim 1 drop EA EYE Q3HR 08/03/20 08/03/20 History [Polymyxin B/TMP Ophth Soln] Acetaminophen [Tylenol Extra 1,000 mg PO Q6H PRN tab 08/11/20 Rx Strength] Polyethylene Glycol 3350 [Miralax] 17 gm PO DAILY pk 08/11/20 Rx traMADol HCl [Ultram] 50 mg PO Q4H PRN tab 08/11/20 Rx Amoxicillin/Potassium Clav 500 mg PO HS #1 tab 08/12/20 Rx [Augmentin] Furosemide 20 mg PO DAILY #30 tablet 08/12/20 Rx cloNIDine [[id number] Patch] 0.1 mg TD Q7D patch 08/12/20 Rx Allergies No Known Drug Allergies Allergy (Verified 08/03/20 07:49) Resuscitation Status - Order Detail: 08/24/20 09:33 Resuscitation Status Routine Resuscitation Status: FULL: Full Resuscitation Hospitalist History - Past Medical History Other Medical History: COPD Chronic respiratory failure with home oxygen Hypertension Small bowel obstruction - Past Surgical History Other Surgical History: Recent surgery for small bowel obstruction with adhesiolysis,Exploratory laparotomy, right colectomy, primary anastomosis ileotransverse colostomy, ? Fluid removed from around the heart - Family History Other Family History: No strong family history of premature coronary artery disease stroke or cancer - Social History Alcohol: reports: None Drugs: reports: none Other Social History: Patient lives at home, no history of tobacco alcohol or illicit drug abuse - Exam General Appearance: NAD, ill appearing General - other findings: Malnourished Eye: PERRL, anicteric sclera ENT: normocephalic atraumatic, no oropharyngeal lesions, moist mucosa Neck: supple, symmetric, no JVD, no thyromegaly, no lymphadenopathy Heart: RRR, no murmur, no gallops, no rubs, normal peripheral pulses Respiratory: no wheezes, no tachypnea Respiratory - other findings: Air entry reduced at base, few basilar rales noted Gastrointestinal: soft, non-tender, non-distended, normal bowel sounds Gastrointestinal - other findings: Surgical site well-healed Extremities: no cyanosis, no clubbing, no edema Skin: normal turgor, no lesions Neurological: normal sensation to touch, no weakness, no focal deficits Musculoskeletal: generalized weakness, diffuse muscle atrophy Psychiatric: normal affect, normal behavior, A&O x 3 Hospitalist Results - Labs Result Diagrams: 08/24/20 00:22 08/24/20 00:22 Lab results: WBC 6.1 thou/uL (4.8-10.8) 08/24/20 00:22 Hgb 10.1 g/dL (14.0-18.0) L 08/24/20:22 Hct 32.5 % (42.0-52.0) L 08/24/20 00:22 MCV 95.2 fL (78.0-98.0) 08/24/20 00: Plt Count 483 thou/uL (130-400) H 08/24/20 00: Neutrophils % 72.4 % (42.0-75.0) 08/24/20 00:22 Sodium 134 mmol/L (136-145) L 08/24/20 00:22 Potassium 4.2 mmol/L (3.5-5.1) 08/24/20 00: Chloride 96 mmol/L (98-107) L 08/24/20 00:22 Carbon Dioxide 27 mmol/L (23-31) 08/24/20 00:22 BUN 8 mg/dL (8.4-25.7) L 08/24/20 00:22 Creatinine 0.82 mg/dL (0.7-1.3) 08/24/20 00:22 Glucose 129 mg/dL (83-110) H 08/24/20 00:22 Lactic Acid 1.0 mmol/L (0.5-2.2) 08/24/20 00:22 Calcium 8.7 mg/dL (7.8-10.44) 08/24/20 00:22 Total Bilirubin 0.3 mg/dL (0.2-1.2) 08/24/20 00:22 AST 17 U/L (5-34) 08/24/20 00:22 ALT 14 U/L (8-55) 08/24/20 00:22 Alkaline Phosphatase 118 U/L (40-110) H 08/24/20 00:22 Troponin I 0.024 ng/mL (< 0.028) 08/24/20 06:27 B-Natriuretic Peptide 257.7 pg/mL (0-100) H 08/24/20 00:22 Serum Total Protein 7.0 g/dL (5.8-8.1) 08/24/20 00:22 Albumin 3.5 g/dL (3.4-4.8) 08/24/20 00:22 - EKG Interpretation EKG: Heart rate 103, sinus tachycardia, no acute ischemic changes, nonspecific T wave changes in the anterior precordial leads. - Radiology Interpretation CT scan - chest Status: image reviewed by me Additional Comment: CT angio chest reported as No evidence of pulmonary embolism, moderate bilateral pleural effusion, dense consolidation posterior right upper lobe, bibasilar atelectasis Chest x-ray Status: image reviewed by me Additional Comment: Chest x-ray reviewed by me and reported as emphysema, bilateral pleural effusion left greater than right, infiltrate at left lower lobe and right upper lobe Hospitalist H&P A/P - Problem (1) Nosocomial pneumonia Code(s): J18.9 - PNEUMONIA, UNSPECIFIED ORGANISM; Y95 - NOSOCOMIAL CONDITION Status: Acute Assessment and Plan: Patient was recently hospitalized about less than a month ago, he has dense consolidation of posterior aspect of right lower lobe, even though patient does not have any fever and leukocytosis but clinically patient has increasing shortness of breath and he is requiring more oxygen, most likely patient has nosocomial pneumonia, in emergency room patient has been given cefepime and vancomycin which we will continue, will monitor clinical response (2) Bilateral pleural effusion Code(s): J90 - PLEURAL EFFUSION, NOT ELSEWHERE CLASSIFIED Status: Acute Assessment and Plan: suspecting from diastolic dysfunction on low-dose of Lasix (3) Mild bibasilar atelectasis Code(s): J98.11 - ATELECTASIS Status: Acute Assessment and Plan: patient is advised to do incentive spirometry (4) Elevated brain natriuretic peptide (BNP) level Code(s): R79.89 - OTHER SPECIFIED ABNORMAL FINDINGS OF BLOOD CHEMISTRY Status: Acute Assessment and Plan: Patient elevated BNP, during previous admission low-dose of Lasix started, patient has bilateral pleural effusion, most likely patient may have underlying diastolic dysfunction, patient does not have any lower extremity edema, will continue to give him Lasix 20 mg IV twice daily, will monitor renal function and electrolytes, will follow up on echocardiography result, (5) Hyponatremia Code(s): E87.1 - HYPO-OSMOLALITY AND HYPONATREMIA Status: Acute Assessment and Plan: may be related with protein calorie malnutrition and CHF (6) History of small bowel obstruction Code(s): Z87.19 - PERSONAL HISTORY OF OTHER DISEASES OF THE DIGESTIVE SYSTEM Status: Acute Assessment and Plan: Patient was admitted in August 03 and he had surgery on August 06, he has been recovered from this problem, he has bowel sounds and he has no nausea or vomiting. (7) History of prostate cancer Code(s): Z85.46 - PERSONAL HISTORY OF MALIGNANT NEOPLASM OF PROSTATE Status: Chronic (8) Hypertension Code(s): I10 - ESSENTIAL (PRIMARY) HYPERTENSION Status: Chronic Qualifiers: Hypertension type: essential hypertension Qualified Code(s): I10 - Essential (primary) hypertension (9) Chronic respiratory failure with hypoxia, on home oxygen therapy Code(s): J96.11 - CHRONIC RESPIRATORY FAILURE WITH HYPOXIA; Z99.81 - DEPENDENCE ON SUPPLEMENTAL OXYGEN Status: Chronic (10) COPD (chronic obstructive pulmonary disease) Status: Chronic Qualifiers: COPD type: emphysema Emphysema type: unspecified Qualified Code(s): J43.9 - Emphysema, unspecified (11) Protein-calorie malnutrition, moderate Code(s): E44.0 - MODERATE PROTEIN-CALORIE MALNUTRITION Status: Chronic (12) Anemia of chronic disease Code(s): D63.8 - ANEMIA IN OTHER CHRONIC DISEASES CLASSIFIED ELSEWHERE Status: Chronic - Plan Plan: plan Echocardiography to assess EF and other structural abnormality Cefepime and vancomycin for nosocomial pneumonia Lasix 20 mg IV daily Incentive spirometry Nutritional support PT OT discharge planning DVT prophylaxis Lovenox 40 mg subcu daily GI prophylaxis Pepcid 20 mg p.o. twice daily CODE STATUS patient is full code Disposition plan based on clinical course were expecting patient stay in hospital more than 2 midnights
[2020-08-24] MEDS ORDERED: Iopamidol 370 76% 100 ML VIAL ONE (13:23)
[2020-08-24] MEDS ORDERED: Furosemide 40 MG/4 ML VIAL SLOW IVP SCH (14:00)
[2020-08-24] MEDS: Furosemide 20 MG/2 ML VIAL SLOW IVP SCH (14:09)
[2020-08-24 14:48] LABS: Bilirubin Negative (Negative); Blood, Urine Negative (Negative); Glucose, Urine (Dipstick) Negative (Negative); Ketone, Urine Negative (Negative); Leukocyte Negative (Negative); Nitrite Negative (Negative); Protein, Urine (Dipstick) Negative (Neg-Trace); Urobilinogen 0.2 mg/dL (Less than 2); pH, Urine 6.5 (5.0-9.0)
[2020-08-24 14:51] LABS: Clarity Clear (Clear)
[2020-08-24 15:30] LABS: RBC/HPF None Seen HPF (0-3); Squamous Epithelial 0-3 HPF (0-3); WBC/HPF None Seen HPF (0-3)
[2020-08-24 15:31] LABS: Bacteria/HPF None Seen HPF (None Seen)
[2020-08-24] MEDS: Vancomycin HCl 750 MG in Sodium Chloride 0.9% 250 ML 250 ML IVPB SCH (18:05)
[2020-08-24] MEDS: Cefepime 1 GM in Sodium Chloride 0.9% 100 ML IVPB SCH (18:06)
[2020-08-24] MEDS: Famotidine 20 MG TAB PO SCH (23:10)
[2020-08-25] MEDS: Cefepime 1 GM in Sodium Chloride 0.9% 100 ML IVPB SCH ×2 (03:03→15:18)
[2020-08-25 05:18] LABS: ALT (SGPT) 9 U/L (8-55); AST (SGOT) 20 U/L (5-34); Albumin 2.9 g/dL (3.4-4.8); Alkaline Phosphatase 98 U/L (40-110); Anion Gap 13 mmol/L (10-20); BUN (Urea Nitrogen) 8 mg/dL (8.4-25.7); Bilirubin, Total 0.2 mg/dL (0.2-1.2); Calc. Creatinine Clearance 70 mL/min (70-130); Carbon Dioxide 29 mmol/L (23-31); Chloride 99 mmol/L (98-107); Estimated GFR-MDRD Greater than 90; Globulin 3.1 g/dL (2.4-3.5); Glucose 97 mg/dL (83-110); Potassium 4.3 mmol/L (3.5-5.1); Sodium 137 mmol/L (136-145)
[2020-08-25] MEDS: Vancomycin HCl 750 MG in Sodium Chloride 0.9% 250 ML 250 ML IVPB SCH (05:31)
[2020-08-25] MEDS: Furosemide 20 MG/2 ML VIAL SLOW IVP SCH ×2 (05:32→13:39)
[2020-08-25 06:22] LABS: Band 1 % (5-11); Eosinophils 6 % (0-10); Hemoglobin 9.2 g/dL (14.0-18.0); Lymphocytes 29 % (21-51); MDiff Complete? YES; Mean Corpuscular HGB CONC 32.2 g/dL (32.0-36.0); Mean Corpuscular Hemoglobin 29.9 pg (27.0-31.0); Mean Corpuscular Volume 92.9 fL (78.0-98.0); Mean Platelet Volume 8.2 fL (7.4-10.4); Monocytes 14 % (0-10); Neutrophil 50 % (42-75); Platelet Count 431 thou/uL (130-400); Red Blood Cell (RBC) Count 3.06 mill/uL (4.70-6.10); White Blood Cell (WBC) Count 4.1 thou/uL (4.8-10.8)
[2020-08-25] MEDS: Saccharomyces boulardii 250 MG CAP PO SCH (08:32)
[2020-08-25] MEDS: Famotidine 20 MG TAB PO SCH ×2 (08:33→20:40)
[2020-08-25] MEDS: Enoxaparin Sodium 40 MG/0.4 ML SYRINGE SC SCH (08:33)
[2020-08-25 15:26] LABS: Vancomycin, Trough 10.8 ug/mL
[2020-08-25] MEDS: Vancomycin 1 GM in Premix Bag 1 BAG IVPB SCH (16:30)
--- NOTE | 2020-08-25 17:03 | PDOC.HOSPP ---
- Subjective Encounter Date: 08/25/20 Encounter Time: 11:00 Subjective: Patient seen for follow-up regarding pneumonia. He denies cough, fevers or chills. - Objective Vital Signs & Weight: Vital Signs (12 hours) Temp Pulse Pulse Pulse Resp BP BP 08/25/20 15:47 97.8 F 98 18 08/25/20 13:52 101 H 16 08/25/20 11:23 98.0 F 101 H 16 08/25/20 11:21 101 H 142/65 H 08/25/20 09:29 87 95 111/59 L 139/63 08/25/20 09:13 89 20 08/25/20 08:20 97.6 F 78 17 08/25/20 08:00 08/25/20 05:41 98.3 F 89 14 08/25/20 05:36 BP Pulse Ox Pulse Ox 08/25/20 15:47 116/59 L 100 08/25/20 13:52 08/25/20 11:23 142/65 H 98 08/25/20 11:21 99 08/25/20 09:29 08/25/20 09:13 08/25/20 08:20 106/56 L 100 08/25/20 08:00 100 08/25/20 05:41 113/57 L 100 08/25/20 05:36 99 Weight Weight 130 lb 1.164 oz I&O: 08/24/20 08/25/20 08/26/20 06:59 06:59 06:59 Intake Total 200 375 Output Total 400 Balance 200 -25 Result Diagrams: 08/25/20 04:31 08/25/20 04:31 Additional Labs: Labs and MAR reviewed by me EKG Reviewed by me: Yes (Normal sinus rhythm on telemetry) Hospitalist ROS - Review of Systems Constitutional: denies: fever, chills, sweats, weakness, malaise Cardiovascular: denies: chest pain, palpitations, orthopnea, paroxysmal noc. d yspnea, edema, light headedness Gastrointestinal: denies: nausea, vomiting, abdominal pain, diarrhea, constipation, melena, hematochezia Genitourinary: denies: dysuria, frequency, incontinence, hematuria, retention Musculoskeletal: denies: neck pain, shoulder pain, arm pain, back pain, hand pain, leg pain, foot pain - Medication Medications: Active Medications Generic Name Dose Route Start Last Admin Trade Name Freq PRN Reason Stop Dose Admin Albuterol/Ipratropium 3 ml 08/24/20 13:00 08/25/20 13:52 Ipratropium/Albuterol Sulfate 3 Ml Neb NEB 3 ml [id number] MAE Administration Bisacodyl 10 mg 08/24/20 09:33 08/25/20 08:33 Bisacodyl 5 Mg Tab PO 10 mg DAILYPRN PRN Administration Constipation Enoxaparin Sodium 40 mg 08/25/20 09:00 08/25/20 08:33 Enoxaparin Sodium 40 Mg/0.4 Ml Syringe SC 40 mg 0900 MAE Administration Famotidine 20 mg 08/24/20 21:00 08/25/20 08:33 Famotidine 20 Mg Tab PO 20 mg BID MAE Administration Furosemide 20 mg 08/24/20 14:00 08/25/20 13:39 Furosemide 20 Mg/2 Ml Vial SLOW IVP 20 mg 0600,1400 MAE Administration Cefepime HCl 1 gm/ Sodium 100 mls @ 200 mls/hr 08/24/20 15:00 08/25/20 15:18 Chloride IVPB 100 mls 0300,1500 MAE Administration Vancomycin HCl 1 gm/ Device 200 mls @ 200 mls/hr 08/25/20 16:00 08/25/20 16:30 IVPB 200 mls 0400,1600 MAE Administration Saccharomyces Boulardii 250 mg 08/25/20 09:00 08/25/20 08:32 Saccharomyces Boulardii 250 Mg Cap PO 250 mg DAILY MAE Administration - Exam General Appearance: awake alert Eye: anicteric sclera ENT: moist mucosa Neck: supple, symmetric, no thyromegaly, no lymphadenopathy Heart: RRR, no gallops, no rubs, normal peripheral pulses Respiratory: CTAB, no wheezes, no rales, no ronchi Gastrointestinal: soft, non-tender, non-distended, normal bowel sounds Skin: no rashes Psychiatric: normal affect, normal behavior, oriented to person, oriented to place Hosp A/P - Plan -Assessment (1) Nosocomial pneumonia Code(s): J18.9 - PNEUMONIA, UNSPECIFIED ORGANISM; Y95 - NOSOCOMIAL CONDITION Status: Acute (2) Bilateral pleural effusion Code(s): J90 - PLEURAL EFFUSION, NOT ELSEWHERE CLASSIFIED Status: Acute (3) Mild bibasilar atelectasis Code(s): J98.11 - ATELECTASIS Status: Acute (4) Elevated brain natriuretic peptide (BNP) level Code(s): R79.89 - OTHER SPECIFIED ABNORMAL FINDINGS OF BLOOD CHEMISTRY Status: Acute (5) Hyponatremia Code(s): E87.1 - HYPO-OSMOLALITY AND HYPONATREMIA Status: Acute (6) History of small bowel obstruction Code(s): Z87.19 - PERSONAL HISTORY OF OTHER DISEASES OF THE DIGESTIVE SYSTEM Status: Chronic (7) History of prostate cancer Code(s): Z85.46 - PERSONAL HISTORY OF MALIGNANT NEOPLASM OF PROSTATE Status: Chronic (8) Hypertension Code(s): I10 - ESSENTIAL (PRIMARY) HYPERTENSION Status: Chronic Qualifiers: Hypertension type: essential hypertension Qualified Code(s): I10 - Essential (primary) hypertension (9) Chronic respiratory failure with hypoxia, on home oxygen therapy Code(s): J96.11 - CHRONIC RESPIRATORY FAILURE WITH HYPOXIA; Z99.81 - DEPENDENCE ON SUPPLEMENTAL OXYGEN Status: Chronic (10) COPD (chronic obstructive pulmonary disease) Status: Chronic Qualifiers: COPD type: emphysema Emphysema type: unspecified Qualified Code(s): J43.9 - Emphysema, unspecified (11) Protein-calorie malnutrition, moderate Code(s): E44.0 - MODERATE PROTEIN-CALORIE MALNUTRITION Status: Chronic (12) Anemia of chronic disease Code(s): D63.8 - ANEMIA IN OTHER CHRONIC DISEASES CLASSIFIED ELSEWHERE Status: Chronic - Plan Continue cefepime and vancomycin for nosocomial pneumonia Echocardiography to assess EF and other structural abnormality Continue Lasix 20 mg IV daily Incentive spirometry for bibasilar atelectasis. Nutritional support PT OT discharge planning
[2020-08-26] MEDS: Cefepime 1 GM in Sodium Chloride 0.9% 100 ML IVPB SCH ×2 (03:13→15:16)
[2020-08-26] MEDS: Vancomycin 1 GM in Premix Bag 1 BAG IVPB SCH (04:09)
[2020-08-26] MEDS: Furosemide 20 MG/2 ML VIAL SLOW IVP SCH ×2 (05:15→15:17)
[2020-08-26] MEDS ORDERED: Non-Formulary Item 1 EACH (Ferrous Sulfate [Iron] 325 MG Tablet) PO SCH (09:00)
[2020-08-26] MEDS ORDERED: Non-Formulary Item 1 EACH (Ascorbic Acid [Vitamin C Chewable Tablet] 250 MG Tab.Chew) PO SCH (09:00)
[2020-08-26] MEDS: Enoxaparin Sodium 40 MG/0.4 ML SYRINGE SC SCH (09:44)
[2020-08-26] MEDS: Ascorbic Acid 500 mg Chewable Tablet PO SCH (09:45)
[2020-08-26] MEDS: Famotidine 20 MG TAB PO SCH ×2 (09:45→20:05)
[2020-08-26] MEDS: Ferrous Sulfate 325 MG TAB PO SCH (09:45)
[2020-08-26] MEDS: Saccharomyces boulardii 250 MG CAP PO SCH (09:45)
[2020-08-26] MEDS: Bicalutamide 50 MG TAB PO SCH (09:56)
--- NOTE | 2020-08-26 11:49 | PDOC.HOSPP ---
- Subjective Encounter Date: 08/26/20 Encounter Time: 09:00 Subjective: Patient seen and examined bedside today, patient is physically very weak, no overnight event, - Objective Vital Signs & Weight: Vital Signs (12 hours) Temp Pulse Resp BP Pulse Ox 08/26/20 08:11 96 16 08/26/20 07:34 99.1 F 96 18 103/55 L 96 08/26/20 03:40 99.5 F 97 18 118/57 L 100 08/26/20 01:28 89 16 96 08/26/20 00:00 94 Weight Weight 130 lb 1.164 oz I&O: 08/25/20 08/26/20 08/27/20 06:59 06:59 06:59 Intake Total 200 735 Output Total 575 Balance 200 160 Result Diagrams: 08/25/20 04:31 08/25/20 04:31 Radiology Reviewed by me: Yes EKG Reviewed by me: Yes Hospitalist ROS - Review of Systems Constitutional: reports: weakness. denies: fever, chills, sweats, malaise, other Respiratory: denies: cough, dry, shortness of breath, hemoptysis, SOB with exce rtion, pleuritic pain, sputum, wheezing, other Cardiovascular: denies: chest pain, palpitations, orthopnea, paroxysmal noc. dyspnea, edema, light headedness, other Gastrointestinal: denies: nausea, vomiting, abdominal pain, diarrhea, constipation, melena, hematochezia, other Genitourinary: denies: dysuria, frequency, incontinence, hematuria, retention, other Musculoskeletal: denies: neck pain, shoulder pain, arm pain, back pain, hand pain, leg pain, foot pain, other - Medication Medications: Active Medications Generic Name Dose Route Start Last Admin Trade Name Freq PRN Reason Stop Dose Admin Albuterol/Ipratropium 3 ml 08/24/20 13:00 08/26/20 08:11 Ipratropium/Albuterol Sulfate 3 Ml Neb NEB 3 ml [id number] MAE Administration Ascorbic Acid 1,000 mg 08/26/20 09:00 08/26/20 09:45 Ascorbic Acid 500 Mg Chewable Tablet PO 1,000 mg DAILY MAE Administration Bicalutamide 50 mg 08/26/20 09:00 08/26/20 09:56 Bicalutamide 50 Mg Tab PO 50 mg DAILY MAE Administration Bisacodyl 10 mg 08/24/20 09:33 08/25/20 08:33 Bisacodyl 5 Mg Tab PO 10 mg DAILYPRN PRN Administration Constipation Enoxaparin Sodium 40 mg 08/25/20 09:00 08/26/20 09:44 Enoxaparin Sodium 40 Mg/0.4 Ml Syringe SC 40 mg 0900 MAE Administration Famotidine 20 mg 08/24/20 21:00 08/26/20 09:45 Famotidine 20 Mg Tab PO 20 mg BID MAE Administration Ferrous Sulfate 325 mg 08/26/20 09:00 08/26/20 09:45 Ferrous Sulfate 325 Mg Tab PO 325 mg DAILY MAE Administration Furosemide 20 mg 08/24/20 14:00 08/26/20 05:15 Furosemide 20 Mg/2 Ml Vial SLOW IVP 20 mg 0600,1400 MAE Administration Cefepime HCl 1 gm/ Sodium 100 mls @ 200 mls/hr 08/24/20 15:00 08/26/20 03:13 Chloride IVPB 100 mls 0300,1500 MAE Administration Saccharomyces Boulardii 250 mg 08/25/20 09:00 08/26/20 09:45 Saccharomyces Boulardii 250 Mg Cap PO 250 mg DAILY MAE Administration - Exam General Appearance: NAD, awake alert Eye: PERRL, anicteric sclera ENT: normocephalic atraumatic, no oropharyngeal lesions Neck: supple, symmetric, no JVD, no thyromegaly Heart: RRR, no murmur, no gallops, no rubs Respiratory: no wheezes, no rales, no ronchi Respiratory - other findings: Air entry reduced at base Gastrointestinal: soft, non-tender, non-distended, normal bowel sounds Extremities: no clubbing, no edema Skin: normal turgor, no lesions Neurological: no focal deficits Musculoskeletal: normal tone, normal strength Psychiatric: normal affect, normal behavior Hosp A/P (1) Nosocomial pneumonia Code(s): J18.9 - PNEUMONIA, UNSPECIFIED ORGANISM; Y95 - NOSOCOMIAL CONDITION Status: Acute (2) Bilateral pleural effusion Code(s): J90 - PLEURAL EFFUSION, NOT ELSEWHERE CLASSIFIED Status: Acute (3) Mild bibasilar atelectasis Code(s): J98.11 - ATELECTASIS Status: Acute (4) Elevated brain natriuretic peptide (BNP) level Code(s): R79.89 - OTHER SPECIFIED ABNORMAL FINDINGS OF BLOOD CHEMISTRY Status: Acute (5) Hyponatremia Code(s): E87.1 - HYPO-OSMOLALITY AND HYPONATREMIA Status: Acute (6) History of small bowel obstruction Code(s): Z87.19 - PERSONAL HISTORY OF OTHER DISEASES OF THE DIGESTIVE SYSTEM Status: Acute (7) History of prostate cancer Code(s): Z85.46 - PERSONAL HISTORY OF MALIGNANT NEOPLASM OF PROSTATE Status: Chronic (8) Hypertension Code(s): I10 - ESSENTIAL (PRIMARY) HYPERTENSION Status: Chronic Qualifiers: Hypertension type: essential hypertension Qualified Code(s): I10 - Essential (primary) hypertension (9) Chronic respiratory failure with hypoxia, on home oxygen therapy Code(s): J96.11 - CHRONIC RESPIRATORY FAILURE WITH HYPOXIA; Z99.81 - DEPENDENCE ON SUPPLEMENTAL OXYGEN Status: Chronic (10) COPD (chronic obstructive pulmonary disease) Status: Chronic Qualifiers: COPD type: emphysema Emphysema type: unspecified Qualified Code(s): J43.9 - Emphysema, unspecified (11) Protein-calorie malnutrition, moderate Code(s): E44.0 - MODERATE PROTEIN-CALORIE MALNUTRITION Status: Chronic (12) Anemia of chronic disease Code(s): D63.8 - ANEMIA IN OTHER CHRONIC DISEASES CLASSIFIED ELSEWHERE Status: Chronic - Plan old records reviewed/req, continue antibiotics, PT/OT, case management social worker Discontinue vancomycin Continue cefepime Continue PT OT Nutritional support Medication reviewed and continue provide symptomatic and supportive care Discharge planning
[2020-08-27] MEDS: Cefepime 1 GM in Sodium Chloride 0.9% 100 ML IVPB SCH ×2 (03:31→14:26)
[2020-08-27] MEDS: Furosemide 20 MG/2 ML VIAL SLOW IVP SCH (05:13)
[2020-08-27] MEDS: Saccharomyces boulardii 250 MG CAP PO SCH (08:30)
[2020-08-27] MEDS: Famotidine 20 MG TAB PO SCH ×2 (08:30→20:29)
[2020-08-27] MEDS: Ascorbic Acid 500 mg Chewable Tablet PO SCH (08:30)
[2020-08-27] MEDS: Enoxaparin Sodium 40 MG/0.4 ML SYRINGE SC SCH (08:30)
[2020-08-27] MEDS: Ferrous Sulfate 325 MG TAB PO SCH (08:30)
--- NOTE | 2020-08-27 10:37 | PDOC.HOSPP ---
- Subjective Encounter Date: 08/27/20 Encounter Time: :20 Subjective: Patient seen and examined. No new complaints. No overnight events - Objective Vital Signs & Weight: Vital Signs (12 hours) Temp Pulse Resp BP Pulse Ox 08/27/20 08:04 86 16 08/27/20 07:55 98.2 F 81 16 120/55 L 08/27/20 03:22 98.8 F 86 16 146/66 H 96 08/26/20 23:51 94 16 95 08/26/20 23:50 79 Weight Weight 130 lb 1.164 oz I&O: 08/26/20 08/27/20 08/28/20 06:59 06:59 06:59 Intake Total 735 240 Output Total 575 325 Balance 160 -85 Result Diagrams: 08/25/20 04:31 08/25/20 04:31 EKG Reviewed by me: Yes Hospitalist ROS - Review of Systems Constitutional: reports: weakness. denies: fever, chills, sweats, malaise, other Respiratory: denies: cough, dry, shortness of breath, hemoptysis, SOB with excertion, pleuritic pain, sputum, wheezing, other Cardiovascular: denies: chest pain, palpitations, orthopnea, paroxysmal noc. dyspnea, edema, light headedness, other Gastrointestinal: denies: nausea, vomiting, abdominal pain, diarrhea, constipation, melena, hematochezia, other Genitourinary: denies: dysuria, frequency, incontinence, hematuria, retention, other Musculoskeletal: denies: neck pain, shoulder pain, arm pain, back pain, hand pain, leg pain, foot pain, other - Medication Medications: Active Medications Generic Name Dose Route Start Last Admin Trade Name Freq PRN Reason Stop Dose Admin Acetaminophen 650 mg 08/24/20 09:33 08/26/20 20:05 Acetaminophen 325 Mg Tab PO 650 mg Q4H PRN Administration Headache/Fever/Mild Pain (1-3) Albuterol/Ipratropium 3 ml 08/24/20 13:00 08/27/20 08:04 Ipratropium/Albuterol Sulfate 3 Ml Neb NEB 3 ml [id number] MAE Administration Ascorbic Acid 1,000 mg 08/26/20 09:00 08/27/20 08:30 Ascorbic Acid 500 Mg Chewable Tablet PO 1,000 mg DAILY MAE Administration Bicalutamide 50 mg 08/26/20 09:00 08/26/20 09:56 Bicalutamide 50 Mg Tab PO 50 mg DAILY MAE Administration Bisacodyl 10 mg 08/24/20 09:33 08/25/20 08:33 Bisacodyl 5 Mg Tab PO 10 mg DAILYPRN PRN Administration Constipation Enoxaparin Sodium 40 mg 08/25/20 09:00 08/27/20 08:30 Enoxaparin Sodium 40 Mg/0.4 Ml Syringe SC 40 mg 0900 MAE Administration Famotidine 20 mg 08/24/20 21:00 08/27/20 08:30 Famotidine 20 Mg Tab PO 20 mg BID MAE Administration Ferrous Sulfate 325 mg 08/26/20 09:00 08/27/20 08:30 Ferrous Sulfate 325 Mg Tab PO 325 mg DAILY MAE Administration Furosemide 20 mg 08/24/20 14:00 08/27/20 05:13 Furosemide 20 Mg/2 Ml Vial SLOW IVP 20 mg 0600,1400 MAE Administration Cefepime HCl 1 gm/ Sodium 100 mls @ 200 mls/hr 08/24/20 15:00 08/27/20 03:31 Chloride IVPB 100 mls 0300,1500 MAE Administration Saccharomyces Boulardii 250 mg 08/25/20 09:00 08/27/20 08:30 Saccharomyces Boulardii 250 Mg Cap PO 250 mg DAILY MAE Administration - Exam General Appearance: NAD, awake alert Eye: PERRL, anicteric sclera ENT: normocephalic atraumatic, no oropharyngeal lesions Neck: symmetric, no JVD, no thyromegaly Heart: RRR, no murmur, no gallops, no rubs Respiratory: no wheezes, no rales, no ronchi Gastrointestinal: soft, non-tender, non-distended, normal bowel sounds Extremities: no cyanosis, no clubbing, no edema Skin: normal turgor, no lesions Neurological: no focal deficits Musculoskeletal: normal tone, normal strength, generalized weakness, diffuse muscle atrophy Psychiatric: normal affect, normal behavior Hosp A/P (1) Nosocomial pneumonia Code(s): J18.9 - PNEUMONIA, UNSPECIFIED ORGANISM; Y95 - NOSOCOMIAL CONDITION Status: Acute (2) Bilateral pleural effusion Code(s): J90 - PLEURAL EFFUSION, NOT ELSEWHERE CLASSIFIED Status: Acute (3) Mild bibasilar atelectasis Code(s): J98.11 - ATELECTASIS Status: Acute (4) Elevated brain natriuretic peptide (BNP) level Code(s): R79.89 - OTHER SPECIFIED ABNORMAL FINDINGS OF BLOOD CHEMISTRY Status: Acute (5) Hyponatremia Code(s): E87.1 - HYPO-OSMOLALITY AND HYPONATREMIA Status: Acute (6) History of small bowel obstruction Code(s): Z87.19 - PERSONAL HISTORY OF OTHER DISEASES OF THE DIGESTIVE SYSTEM Status: Acute (7) History of prostate cancer Code(s): Z85.46 - PERSONAL HISTORY OF MALIGNANT NEOPLASM OF PROSTATE Status: Chronic (8) Hypertension Code(s): I10 - ESSENTIAL (PRIMARY) HYPERTENSION Status: Chronic Qualifiers: Hypertension type: essential hypertension Qualified Code(s): I10 - Essential (primary) hypertension (9) Chronic respiratory failure with hypoxia, on home oxygen therapy Code(s): J96.11 - CHRONIC RESPIRATORY FAILURE WITH HYPOXIA; Z99.81 - DEPENDENCE ON SUPPLEMENTAL OXYGEN Status: Chronic (10) COPD (chronic obstructive pulmonary disease) Status: Chronic Qualifiers: COPD type: emphysema Emphysema type: unspecified Qualified Code(s): J43.9 - Emphysema, unspecified (11) Protein-calorie malnutrition, moderate Code(s): E44.0 - MODERATE PROTEIN-CALORIE MALNUTRITION Status: Chronic (12) Anemia of chronic disease Code(s): D63.8 - ANEMIA IN OTHER CHRONIC DISEASES CLASSIFIED ELSEWHERE Status: Chronic - Plan old records reviewed/req, continue antibiotics, PT/OT, social service manager Change Lasix to p.o. Continue cefepime Continue PT OT Nutritional support Medication reviewed and continue provide symptomatic and supportive care Discharge planning
[2020-08-27] MEDS: Bicalutamide 50 MG TAB PO SCH (11:06)
[2020-08-28] MEDS: Cefepime 1 GM in Sodium Chloride 0.9% 100 ML IVPB SCH (03:05)
[2020-08-28] MEDS: Enoxaparin Sodium 40 MG/0.4 ML SYRINGE SC SCH (08:10)
[2020-08-28] MEDS: Ascorbic Acid 500 mg Chewable Tablet PO SCH (08:10)
[2020-08-28] MEDS: Bicalutamide 50 MG TAB PO SCH (08:10)
[2020-08-28] MEDS: Saccharomyces boulardii 250 MG CAP PO SCH (08:11)
[2020-08-28] MEDS: Famotidine 20 MG TAB PO SCH (08:11)
[2020-08-28] MEDS: Ferrous Sulfate 325 MG TAB PO SCH (08:11)
[2020-08-28] MEDS ORDERED: Furosemide 20 MG TAB PO SCH (09:00)
[2020-08-28 09:42] LABS: #Lymphocytes 1.1 thou/uL (1.20-3.40); #Monocytes 0.3 thou/uL (0.11-0.59); #Neutrophils 1.7 thou/uL (1.40-6.50); %Basophils 0.3 % (0.0-1.0); %Eosinophils 1.4 % (0.0-10.0); %Lymphocytes 33.4 % (21.0-51.0); %Monocytes 10.8 % (0.0-10.0); %Neutrophils 54.1 % (42.0-75.0); Hemoglobin 8.7 g/dL (14.0-18.0); Mean Corpuscular HGB CONC 31.5 g/dL (32.0-36.0); Mean Corpuscular Hemoglobin 29.2 pg (27.0-31.0); Mean Corpuscular Volume 92.6 fL (78.0-98.0); Mean Platelet Volume 6.5 fL (7.4-10.4); Platelet Count 349 thou/uL (130-400); RBC Distribution Width 13.3 % (11.5-14.5); Red Blood Cell (RBC) Count 2.99 mill/uL (4.70-6.10); White Blood Cell (WBC) Count 3.1 thou/uL (4.8-10.8)
[2020-08-28 10:05] LABS: ALT (SGPT) 10 U/L (8-55); AST (SGOT) 17 U/L (5-34); Alkaline Phosphatase 90 U/L (40-110); Anion Gap 11 mmol/L (10-20); BUN (Urea Nitrogen) 9 mg/dL (8.4-25.7); Bilirubin, Total 0.2 mg/dL (0.2-1.2); Calc. Creatinine Clearance 68 mL/min (70-130); Calcium 8.1 mg/dL (7.8-10.44); Carbon Dioxide 34 mmol/L (23-31); Chloride 92 mmol/L (98-107); Estimated GFR-MDRD Greater than 90; Globulin 3.2 g/dL (2.4-3.5); Glucose 91 mg/dL (83-110); Potassium 3.6 mmol/L (3.5-5.1); Protein, Total 6.2 g/dL (5.8-8.1); Sodium 133 mmol/L (136-145)
--- NOTE | 2020-08-28 10:47 | PDOC.DS.DS ---
Provider - Provider Date of Admission: 08/24/20 02:49 Date of Discharge: 08/28/20 Admitting Provider: Jaki Morales MD Consultations: None Primary Care Physician: Julien Wilkins MD Course - Hospital Course Hospital Course: 79-year-old male who had recently admission for small bowel obstruction required surgery, subsequently he was home and he came back with increasing shortness of breath. Radiological investigations showed pneumonia, based on her his recent hospitalization it was treated as a for nosocomial pneumonia with cefepime and vancomycin. He was also found with elevated BNP and that is why we obtain echocardiography which showed normal EF, while in hospital he was given gentle diuretic therapy. Initially he was requiring more than usual oxygen but by the time of discharge he was up to his baseline, he does have chronic respiratory failure, he also has underlying protein calorie malnutrition and COPD. On discharge be changed to cefdinir. His blood pressure was running on lower side so we discontinued clonidine. Patient was not interested in going to residential home. Patient seen and examined bedside today, patient is up to his baseline level. We added Dulera inhaler on his discharge medication. Resuscitation Status: 08/24/20 09:33 Resuscitation Status Routine Resuscitation Status: FULL: Full Resuscitation - Labs Lab Results: 08/28/20 09:25 08/28/20 09:25 Abnormal Lab Results - Last 48 hrs 08/28/20 09:25: Sodium 133 L, Chloride 92 L, Carbon Dioxide 34 H, Albumin 3.0 L, Albumin/Globulin Ratio 0.9 L 08/28/20 09:25: WBC 3.1 L, RBC 2.99 L, Hgb 8.7 L, Hct 27.7 L, MCHC 31.5 L, MPV 6.5 L, Monocytes % 10.8 H, Lymphocytes # 1.1 L Microbiology - Entire Visit 08/24/20 02:37 Venous blood - Right Arm Blood Culture - Preliminary NO GROWTH AT 48 HOURS 08/24/20 00:22 Venous blood - Right Hand Blood Culture - Preliminary NO GROWTH AT 48 HOURS - Diagnostic Interpretation Other Additional comments: Chest x-ray showed emphysema, bilateral pleural effusion, left lower lobe infi ltration and right upper lobe infiltration CT angiography showed no evidence of pulmonary embolism, bilateral pleural effusion with compressive atelectasis emphysema Echocardiography showed EF 50 to 55%, diastolic dysfunction - Physical Exam Vitals: Vital Signs (12 hours) Temp Pulse Resp BP Pulse Ox 08/28/20 07:13 98.4 F 87 18 109/56 L 97 08/28/20 06:49 85 14 100 08/28/20 03:54 98.3 F 96 16 112/57 L 97 08/28/20 00:01 85 18 95 08/27/20 23:49 86 Weight Weight 130 lb 1.164 oz Physical Exam: The patient was seen and examined on the day of discharge. General patient is currently alert awake no acute distress Head normocephalic atraumatic Neck supple no JVD no meningeal signs of irritation Lungs clear to auscultation without any rhonchi rales Cardiac S1-S2 regular no murmur no gallop no rub Abdomen soft, bowel sound present, nontender nondistended no organomegaly no mass Extremity no edema Neurologic nonfocal examination Problem - Problem (1) Acute on chronic diastolic heart failure Code(s): I50.33 - ACUTE ON CHRONIC DIASTOLIC (CONGESTIVE) HEART FAILURE Status: Acute (2) Nosocomial pneumonia Code(s): J18.9 - PNEUMONIA, UNSPECIFIED ORGANISM; Y95 - NOSOCOMIAL CONDITION Status: Acute (3) Bilateral pleural effusion Code(s): J90 - PLEURAL EFFUSION, NOT ELSEWHERE CLASSIFIED Status: Acute (4) Mild bibasilar atelectasis Code(s): J98.11 - ATELECTASIS Status: Acute (5) Elevated brain natriuretic peptide (BNP) level Code(s): R79.89 - OTHER SPECIFIED ABNORMAL FINDINGS OF BLOOD CHEMISTRY Status: Acute (6) Hyponatremia Code(s): E87.1 - HYPO-OSMOLALITY AND HYPONATREMIA Status: Acute (7) History of small bowel obstruction Code(s): Z87.19 - PERSONAL HISTORY OF OTHER DISEASES OF THE DIGESTIVE SYSTEM Status: Acute (8) History of prostate cancer Code(s): Z85.46 - PERSONAL HISTORY OF MALIGNANT NEOPLASM OF PROSTATE Status: Chronic (9) Hypertension Code(s): I10 - ESSENTIAL (PRIMARY) HYPERTENSION Status: Chronic Qualifiers: Hypertension type: essential hypertension Qualified Code(s): I10 - Essenti al (primary) hypertension (10) Chronic respiratory failure with hypoxia, on home oxygen therapy Code(s): J96.11 - CHRONIC RESPIRATORY FAILURE WITH HYPOXIA; Z99.81 - DEPENDENCE ON SUPPLEMENTAL OXYGEN Status: Chronic (11) COPD (chronic obstructive pulmonary disease) Status: Chronic Qualifiers: COPD type: emphysema Emphysema type: unspecified Qualified Code(s): J43.9 - Emphysema, unspecified (12) Protein-calorie malnutrition, moderate Code(s): E44.0 - MODERATE PROTEIN-CALORIE MALNUTRITION Status: Chronic (13) Anemia of chronic disease Code(s): D63.8 - ANEMIA IN OTHER CHRONIC DISEASES CLASSIFIED ELSEWHERE Status: Chronic Plan - Discharge Medications Prescriptions: Cefdinir 300 mg PO Q12HR #10 capsule Saccharomyces boulardii [Florastor] 250 mg PO DAILY #5 cap Home Medications: Medication Instructions Recorded Confirmed Type ALButerol Sulfate [Ventolin Neb] 1 puff NEB Q6HR PRN 08/03/20 08/24/20 History Ascorbic Acid [Vitamin C Chewable 1,000 mg PO DAILY 08/03/20 08/24/20 History Tablet] Ferrous Sulfate [Iron] 325 mg PO DAILY 08/03/20 08/24/20 History traMADol HCl [Ultram] 50 mg PO Q4H PRN tab 08/11/20 08/24/20 Rx Furosemide 20 mg PO DAILY #30 tablet 08/12/20 08/24/20 Rx Amlodipine Besylate [amLODIPine 2.5 mg PO DAILY 08/24/20 08/24/20 History Besylate] Bicalutamide [Casodex] 50 mg PO DAILY 08/24/20 08/24/20 History Cefdinir 300 mg PO Q12HR #10 capsule 08/28/20 Rx Mometasone/Formoterol 200/5 2 puff INH BID #1 inhaler 08/28/20 Rx [Dulera 200 mcg/5 mcg Inhaler] Saccharomyces boulardii [Florastor] 250 mg PO DAILY #5 cap 08/28/20 Rx Allergies: No Known Drug Allergies Allergy (Verified 08/24/20 18:12) - Discharge Instructions Activity:: Activity as Tolerated Nourishment:: Heart Healthy Diet Therapies:: Not Applicable Equipment/Supplies:: Not Applicable IV Therapy:: Not Applicable - Follow up Plan Referrals: Julien Wilkins MD [Primary Care Provider] - 7 Days (PLEASE CALL AND SCHEDULE FOLLO W UP APPOINTMENT. ) Disposition: HOME Quality - Care Measures CORE MEASURES:: N/A
[2020-08-28 11:26] VITALS: BP 128/62; TEMP 97.9
--- NOTE | 2020-08-30 03:33 | PQF ---
CLINICAL DOCUMENTATION CLARIFICATION FORM: Dear : Khushbu De Santiago Date / Time: 08/30/20 9491 Please exercise your independent, professional judgment in responding to the clarification form. Clinical indicators are provided on the bottom of this form for your review Based on the clinical indicators on admit, can you determine if Acute on Chronic Diastolic Heart Failure was present at the time of admission? Diagnosis: Acute on Chronic Diastolic Heart Failure Present on Admission (POA): [x ] Yes [ ] No [ ] Unable to determine Physician Signature: Date/Time: For continuity of documentation, please document condition throughout progress notes and discharge summary. Thank You. To be completed by CDI/Coding staff for physician review: Present Clinical Indicators - Signs / Symptoms / Labs Results and Location in Medical Record [X] BP 145/66, Pulse 95, Resp 24, Temp 97.4 Vital signs 08/24 [X] BNP 257.7, Troponin I 0.015; 0.021; 0.024 Laboratory 08/24 [X] Echocardiogram: EF 50-55% Imaging Dr Branch 08/25 [X] Chest X-ray Impression: Bilateral pleura effusion, infiltrates at LLL and RUL Imaging Dr Melendez 08/24 [X] Presented with increasing shortness of breath H&P p1 08/24 Dr De Santiago [X] Bilateral pleural effusion H&P p5 08/24 Dr De Santiago [X] Mild bibasilar atelectaisis H&P p5 08/24 Dr De Santiago [X] Elevated brain natriuretic peptide level H&P p6 08/24 Dr De Santiago [X] Hyponatremia may be related with protein calorie malnutrition with CHF H&P p6 08/24 Dr De Santiago [X] no JVD DS 08/28 [X] Extremity: no edema DS 08/28 Present Risk Factors Results and Location in Medical Record [X] 79 year-old Male H&P p1 08/24 Dr De Santiago [X] COPD H&P p3 08/24 Dr De Santiago [X] Chronic respiratory failure with home Oxygen H&P p3 08/24 Dr De Santiago [X] HTN H&P p3 08/24 Dr De Santiago [X] Nosocomial Pneumonia H&P p5 08/24 Dr De Santiago Present Treatments Results and Location in Medical Record [X] IV Lasix 20 mg JET 08/24 [X] Oxygen 1L Respiratory Panel 08/24 [X] Echocardiogram Imaging Dr Branch 08/25 [X] Chest X-ray Imaging Dr Melendez 08/24 CDS/Bed Control Specialist Signature: Lara Brianna Shu Phone #: [phone] Date/Time: 08/15/2020 0332 This is a permanent part of the Medical Record [facility]
== END 2020-08-28 13:14 | disposition home health service (06) | DRG 291 ==
LOC: ERS 23:59 → ERHOLD 08-24 02:49 → 2NO 08-24 16:43
PROVIDERS: ADMIT Internal Medicine; ATTEND Internal Medicine
DX: I11.0 Hypertensive heart disease with heart failure (principal); J18.9 Pneumonia, unspecified organism; J96.11 Chronic respiratory failure with hypoxia; E44.0 Moderate protein-calorie malnutrition; Z68.1 Body mass index [BMI] 19.9 or less, adult; E87.1 Hypo-osmolality and hyponatremia; J98.11 Atelectasis; I50.33 Acute on chronic diastolic (congestive) heart failure; J43.9 Emphysema, unspecified; D63.8 Anemia in other chronic diseases classified elsewhere; Z20.828 Contact with and (suspected) exposure to other viral communicable diseases; Y95 Nosocomial condition; Z99.81 Dependence on supplemental oxygen; Z85.46 Personal history of malignant neoplasm of prostate; Z87.19 Personal history of other diseases of the digestive system; Z85.89 Personal history of malignant neoplasm of other organs and systems; Z90.49 Acquired absence of other specified parts of digestive tract; Z79.899 Other long term (current) drug therapy
CPT/HCPCS: 36415; 36600; 71045; 71275; 80053; 80202; 81001; 83605; 83880; 84484; 85025; 87040; 93005; 93306; 94640; 96365; 96366; 96367; 96375; J0692; J1650; J1940; J3370; J3490; J7050; J7620; Q9967; U0002